=== PATIENT | female | born 1945 | race Caucasian/White ===

== ENCOUNTER → 2023-10-31 14:12 | Outpatient (REF) | payer MEDICARE, SELFPAY ==
[2023-10-31 15:20] LABS: % Basophils 0.9 % (0-2); % Eosinophils 2.1 % (0-6); % Immature Granulocytes 0.3 % (0-0.5); % Lymphocytes 16.2 % (20.5-51.1); % Neutrophils 72.5 % (42.2-75.2); Absolute Basophils 0.1 10^3/uL (0-0.2); Absolute Eosinophils 0.2 10^3/uL (0-0.7); Absolute Lymphocytes 1.3 10^3/uL (1.2-3.4); Absolute Monocytes 0.6 10^3/uL (0.1-0.6); Absolute Neutrophils 5.7 10^3/uL (1.4-6.5); Hematocrit 41.4 % (37.0-47.0); Hemoglobin 13.6 g/dL (12.0-16.0); Mean Corp Hgb Conc. 32.9 g/dL (33.0-37.0); Mean Corpuscular Hgb 29.5 pg (27.0-31.0); Mean Corpuscular Volume 89.8 fL (81.0-99.0); Mean Platelet Volume 10.8 fL (7.4-10.4); Nucleated Red Blood Cells % 0 %; Platelet Count 269 10^3/uL (130-400); Red Blood Cell Count 4.61 10^6/uL (4.20-5.40); Red Cell Dist. Width 13.8 % (11.5-14.5); White Blood Cell Count 7.8 10^3/uL (4.8-10.8)
[2023-10-31 15:42] LABS: ALT (SGPT) 24 U/L (0-35); AST (SGOT) 31 U/L (14-36); Albumin 4.2 g/dl (3.5-5.0); Alkaline Phosphatase 111 U/L (38-126); Blood Urea Nitrogen 24 mg/dl (7-17); Calcium 9.8 mg/dl (8.4-10.2); Carbon Dioxide 27 mmol/L (22-30); Chloride 105 mmol/L (98-107); GGTP 25 U/L (12-43); Glucose 104 mg/dl (70-99); HDL Cholesterol 84 mg/dl; LDL Cholesterol, Calculated 64 mg/dl; Potassium 4.3 mmol/L (3.5-5.1); Sodium 139 mmol/L (135-145); Total Bilirubin 0.5 mg/dl (0.2-1.3); Total Cholesterol 162 mg/dl (50-199); Total Protein 6.7 g/dl (6.3-8.2); Triglyceride 72 mg/dl (10-149); Very Low Density Lipoprotein 14 mg/dl (0-30); eGFR > 60.00
[2023-11-01 09:27] LABS: Glycohemoglobin (HgbA1c) 6.2 % (4.0-5.6)
== END ==
LOC: REG 14:12
PROVIDERS: ATTENDING PHYSICIAN Physician Assistant Medical
DX: E78.2 Mixed hyperlipidemia (principal); Z86.2 Personal history of diseases of the blood and blood-forming organs and certain disorders involving the immune mechanism; R74.8 Abnormal levels of other serum enzymes; K21.9 Gastro-esophageal reflux disease without esophagitis; R79.89 Other specified abnormal findings of blood chemistry; M85.89 Other specified disorders of bone density and structure, multiple sites
CPT/HCPCS: 36415; 80053; 80061; 82977; 83036; 85025

== ENCOUNTER → 2023-12-31 11:38 | Outpatient (REF) | payer MEDICARE, SELFPAY ==
[2023-12-31 17:26] LABS: Urine Albumin 2+ (Neg - Trace); Urine Bilirubin Negative (Negative); Urine Character Very Cloudy (Clear); Urine Color Yellow; Urine Glucose Negative (Negative); Urine Ketone Trace (Negative); Urine Leukocyte 2+ (Negative); Urine Nitrite Positive (Negative); Urine Occult Blood 4+ (Negative); Urine Urobilinogen Negative (Neg - 1+)
[2023-12-31 17:44] LABS: Urine Bacteria Few (Negative); Urine Red Blood Cell 80-90 /HPF (0-2)
[2023-12-31 17:45] LABS: Urine White Cell 30-40 /HPF (0-5)
== END ==
LOC: CLAB 11:38
PROVIDERS: ATTENDING PHYSICIAN Physician Assistant Medical
DX: R30.0 Dysuria (principal)
CPT/HCPCS: 81003; 81015; 87086; 87088; 87186

== ENCOUNTER → 2024-01-16 11:54 | Outpatient (REF) | payer MEDICARE, SELFPAY ==
[2024-01-16 17:51] LABS: Urine Albumin 1+ (Neg - Trace); Urine Bilirubin Negative (Negative); Urine Character Slightly Cloudy (Clear); Urine Color Yellow; Urine Glucose Negative (Negative); Urine Ketone Negative (Negative); Urine Leukocyte 2+ (Negative); Urine Nitrite Negative (Negative); Urine Occult Blood 3+ (Negative); Urine Urobilinogen Negative (Neg - 1+)
[2024-01-16 18:10] LABS: Urine Squamous Cell 0-2 /LPF (Few)
[2024-01-16 18:11] LABS: Urine Bacteria Many (Negative); Urine White Cell >100 /HPF (0-5)
== END ==
LOC: CLAB 11:54
PROVIDERS: ATTENDING PHYSICIAN Physician Assistant Medical
DX: R82.90 Unspecified abnormal findings in urine (principal)
CPT/HCPCS: 81003; 81015; 87086; 87088; 87186

== ENCOUNTER → 2024-01-27 11:46 | Outpatient (REF) | payer MEDICARE, SELFPAY ==
[2024-01-27 19:08] LABS: Urine Albumin 1+ (Neg - Trace); Urine Bilirubin Negative (Negative); Urine Character Slightly Cloudy (Clear); Urine Color Yellow; Urine Glucose Negative (Negative); Urine Ketone Negative (Negative); Urine Leukocyte 2+ (Negative); Urine Nitrite Negative (Negative); Urine Occult Blood 4+ (Negative); Urine Urobilinogen Negative (Neg - 1+); Urine pH 6.5 (5.0-9.0)
[2024-01-27 19:16] LABS: Urine Amorphous Seen; Urine Bacteria Moderate (Negative); Urine Red Blood Cell 40-50 /HPF (0-2)
== END ==
LOC: CLAB 11:46
PROVIDERS: ATTENDING PHYSICIAN Physician Assistant Medical
DX: Z01.89 Encounter for other specified special examinations (principal); J32.9 Chronic sinusitis, unspecified; N30.01 Acute cystitis with hematuria
CPT/HCPCS: 81003; 81015; 87086

== ENCOUNTER → 2024-01-29 15:51 | Outpatient (REF) | payer MEDICARE, SELFPAY | LOC: CLAB 15:51 | PROVIDERS: ATTENDING PHYSICIAN Urology | DX: R35.0 Frequency of micturition (principal) | CPT/HCPCS: 87086; 87088; 87186 ==

== ENCOUNTER → 2024-02-07 10:14 | Outpatient (REF) | payer MEDICARE, SELFPAY | LOC: HWRCS 10:14 | PROVIDERS: ATTENDING PHYSICIAN Internal Medicine Interventional Cardiology; FAMILY PHYSICIAN Internal Medicine Gastroenterology | DX: R00.2 Palpitations (principal); R00.0 Tachycardia, unspecified; R06.09 Other forms of dyspnea; R07.89 Other chest pain | CPT/HCPCS: 93306 ==

== ENCOUNTER → 2024-03-11 16:28 | Outpatient (REF) | payer MEDICARE, SELFPAY ==
[2024-03-11 18:29] LABS: % Basophils 0.8 % (0-2); % Eosinophils 1.3 % (0-6); % Immature Granulocytes 0.3 % (0-0.5); % Lymphocytes 11.6 % (20.5-51.1); % Monocytes 8.7 % (1.7-9.3); % Neutrophils 77.3 % (42.2-75.2); Absolute Basophils 0.1 10^3/uL (0-0.2); Absolute Eosinophils 0.1 10^3/uL (0-0.7); Absolute Lymphocytes 0.9 10^3/uL (1.2-3.4); Absolute Monocytes 0.7 10^3/uL (0.1-0.6); Absolute Neutrophils 5.7 10^3/uL (1.4-6.5); Hematocrit 41.3 % (37.0-47.0); Hemoglobin 13.4 g/dL (12.0-16.0); Mean Corp Hgb Conc. 32.4 g/dL (33.0-37.0); Mean Corpuscular Hgb 29.6 pg (27.0-31.0); Mean Corpuscular Volume 91.4 fL (81.0-99.0); Mean Platelet Volume 11.6 fL (7.4-10.4); Nucleated Red Blood Cells % 0 %; Platelet Count 254 10^3/uL (130-400); Red Blood Cell Count 4.52 10^6/uL (4.20-5.40); White Blood Cell Count 7.4 10^3/uL (4.8-10.8)
[2024-03-11 18:39] LABS: Iron 77 ug/dl (37-170)
== END ==
LOC: CLAB 16:28
PROVIDERS: ATTENDING PHYSICIAN Physician Assistant Medical
DX: R19.5 Other fecal abnormalities (principal); D50.9 Iron deficiency anemia, unspecified
CPT/HCPCS: 83540; 85025

== ENCOUNTER → 2024-03-24 11:38 | Outpatient (REF) | payer MEDICARE, SELFPAY ==
[2024-03-24 12:38] LABS: % Basophils 0.8 % (0-2); % Eosinophils 1.6 % (0-6); % Immature Granulocytes 0.2 % (0-0.5); % Lymphocytes 12.2 % (20.5-51.1); % Monocytes 7.2 % (1.7-9.3); Absolute Basophils 0.1 10^3/uL (0-0.2); Absolute Eosinophils 0.1 10^3/uL (0-0.7); Absolute Monocytes 0.6 10^3/uL (0.1-0.6); Absolute Neutrophils 6.4 10^3/uL (1.4-6.5); Hematocrit 40.6 % (37.0-47.0); Hemoglobin 13.8 g/dL (12.0-16.0); Mean Corpuscular Hgb 29.3 pg (27.0-31.0); Mean Corpuscular Volume 86.2 fL (81.0-99.0); Mean Platelet Volume 11.7 fL (7.4-10.4); Nucleated Red Blood Cells % 0 %; Platelet Count 194 10^3/uL (130-400); Red Blood Cell Count 4.71 10^6/uL (4.20-5.40); Red Cell Dist. Width 13.7 % (11.5-14.5); White Blood Cell Count 8.3 10^3/uL (4.8-10.8)
[2024-03-24 13:07] LABS: ALT (SGPT) 20 U/L (0-35); AST (SGOT) 28 U/L (14-36); Albumin 4.5 g/dl (3.5-5.0); Alkaline Phosphatase 115 U/L (38-126); Blood Urea Nitrogen 26 mg/dl (7-17); Carbon Dioxide 23 mmol/L (22-30); Chloride 109 mmol/L (98-107); Glucose 110 mg/dl (70-99); HDL Cholesterol 101 mg/dl; LDL Cholesterol, Calculated 58 mg/dl; Potassium 4.3 mmol/L (3.5-5.1); Sodium 141 mmol/L (135-145); Total Bilirubin 0.5 mg/dl (0.2-1.3); Total Cholesterol 171 mg/dl (50-199); Total Protein 6.9 g/dl (6.3-8.2); Triglyceride 62 mg/dl (10-149); Very Low Density Lipoprotein 12 mg/dl (0-30); eGFR > 60.00
[2024-03-24 13:34] LABS: TSH 2.72 uIU/ml (0.47-4.68)
[2024-03-24 13:52] LABS: Urine Albumin 2+ (Neg - Trace); Urine Bilirubin Negative (Negative); Urine Character Clear (Clear); Urine Color Yellow; Urine Glucose Negative (Negative); Urine Ketone Negative (Negative); Urine Leukocyte 2+ (Negative); Urine Nitrite Negative (Negative); Urine Occult Blood 3+ (Negative); Urine Urobilinogen Negative (Neg - 1+)
[2024-03-24 14:02] LABS: Urine Bacteria Few (Negative); Urine Squamous Cell 0-2 /LPF (Few); Urine White Cell 40-50 /HPF (0-5)
== END ==
LOC: RAD 11:38
PROVIDERS: ATTENDING PHYSICIAN Surgery; FAMILY PHYSICIAN Physician Assistant Medical; REFERRING PHYSICIAN Obstetrics & Gynecology
DX: N20.0 Calculus of kidney (principal); N39.0 Urinary tract infection, site not specified; R19.5 Other fecal abnormalities; R63.4 Abnormal weight loss; K21.9 Gastro-esophageal reflux disease without esophagitis; Z87.19 Personal history of other diseases of the digestive system; Z86.2 Personal history of diseases of the blood and blood-forming organs and certain disorders involving the immune mechanism; E78.2 Mixed hyperlipidemia; D72.9 Disorder of white blood cells, unspecified; D64.9 Anemia, unspecified
CPT/HCPCS: 36415; 74176; 80053; 80061; 81003; 81015; 84443; 85025; 87086

== ENCOUNTER → 2024-04-14 13:01 | Outpatient (REF) | payer MEDICARE, SELFPAY ==
[2024-04-14 16:10] LABS: % Basophils 0.8 % (0-2); % Eosinophils 1.3 % (0-6); % Immature Granulocytes 0.3 % (0-0.5); % Lymphocytes 14.5 % (20.5-51.1); % Monocytes 8.2 % (1.7-9.3); % Neutrophils 74.9 % (42.2-75.2); Absolute Basophils 0.1 10^3/uL (0-0.2); Absolute Eosinophils 0.1 10^3/uL (0-0.7); Absolute Lymphocytes 1.3 10^3/uL (1.2-3.4); Absolute Monocytes 0.8 10^3/uL (0.1-0.6); Hematocrit 40.5 % (37.0-47.0); Hemoglobin 13.5 g/dL (12.0-16.0); Mean Corp Hgb Conc. 33.3 g/dL (33.0-37.0); Mean Corpuscular Hgb 29.5 pg (27.0-31.0); Mean Corpuscular Volume 88.6 fL (81.0-99.0); Mean Platelet Volume 11.4 fL (7.4-10.4); Nucleated Red Blood Cells % 0 %; Platelet Count 266 10^3/uL (130-400); Red Blood Cell Count 4.57 10^6/uL (4.20-5.40); Red Cell Dist. Width 13.6 % (11.5-14.5); White Blood Cell Count 9.3 10^3/uL (4.8-10.8)
== END ==
LOC: REG 13:01
PROVIDERS: ATTENDING PHYSICIAN Physician Assistant Medical
DX: R79.9 Abnormal finding of blood chemistry, unspecified (principal)
CPT/HCPCS: 36415; 85025

== ENCOUNTER 2024-04-16 07:01 | Day surgery (SDC) | payer MEDICARE, SELFPAY | END 2024-04-16 12:30 | disposition home or self-care (01) | LOC: CATH 07:01 | PROVIDERS: ATTENDING PHYSICIAN Internal Medicine Cardiovascular Disease; FAMILY PHYSICIAN Physician Assistant Medical; OTHER PHYSICIAN Internal Medicine Interventional Cardiology | DX: I08.3 Combined rheumatic disorders of mitral, aortic and tricuspid valves (principal); I70.0 Atherosclerosis of aorta; Z79.899 Other long term (current) drug therapy | CPT/HCPCS: 93312; 93320; 93325 ==

== ENCOUNTER → 2024-05-04 12:50 | Outpatient (REF) | payer MEDICARE, SELFPAY ==
[2024-05-04 15:37] LABS: ALT (SGPT) 23 U/L (0-35); AST (SGOT) 33 U/L (14-36); Albumin 4.1 g/dl (3.5-5.0); Alkaline Phosphatase 124 U/L (38-126); Blood Urea Nitrogen 15 mg/dl (7-17); Calcium 9.7 mg/dl (8.4-10.2); Carbon Dioxide 25 mmol/L (22-30); Chloride 108 mmol/L (98-107); Glucose 95 mg/dl (70-99); Potassium 4.4 mmol/L (3.5-5.1); Sodium 143 mmol/L (135-145); Total Bilirubin 0.5 mg/dl (0.2-1.3); Total Protein 6.3 g/dl (6.3-8.2); eGFR > 60.00
== END ==
LOC: REG 12:50
PROVIDERS: ATTENDING PHYSICIAN Physician Assistant Medical
DX: R79.9 Abnormal finding of blood chemistry, unspecified (principal)
CPT/HCPCS: 36415; 80053

== ENCOUNTER → 2024-06-26 09:26 | Outpatient (REF) | payer MEDICARE, SELFPAY ==
[2024-06-26 10:52] LABS: Urine Albumin 2+ (Neg - Trace); Urine Bilirubin Negative (Negative); Urine Character Very Cloudy (Clear); Urine Color Yellow; Urine Glucose Negative (Negative); Urine Ketone Negative (Negative); Urine Leukocyte 2+ (Negative); Urine Nitrite Negative (Negative); Urine Occult Blood 4+ (Negative); Urine Urobilinogen Negative (Neg - 1+)
[2024-06-26 11:32] LABS: % Basophils 1.1 % (0-2); % Eosinophils 2.3 % (0-6); % Immature Granulocytes 0.2 % (0-0.5); % Lymphocytes 16.9 % (20.5-51.1); % Neutrophils 70.5 % (42.2-75.2); Absolute Basophils 0.1 10^3/uL (0-0.2); Absolute Eosinophils 0.2 10^3/uL (0-0.7); Absolute Lymphocytes 1.1 10^3/uL (1.2-3.4); Absolute Monocytes 0.6 10^3/uL (0.1-0.6); Absolute Neutrophils 4.6 10^3/uL (1.4-6.5); Hematocrit 45.3 % (37.0-47.0); Hemoglobin 14.8 g/dL (12.0-16.0); Mean Corp Hgb Conc. 32.7 g/dL (33.0-37.0); Mean Corpuscular Hgb 29.8 pg (27.0-31.0); Mean Corpuscular Volume 91.1 fL (81.0-99.0); Mean Platelet Volume 11.9 fL (7.4-10.4); Nucleated Red Blood Cells % 0 %; Platelet Count 222 10^3/uL (130-400); Red Blood Cell Count 4.97 10^6/uL (4.20-5.40); Red Cell Dist. Width 12.9 % (11.5-14.5); White Blood Cell Count 6.6 10^3/uL (4.8-10.8)
[2024-06-26 11:44] LABS: Urine Red Blood Cell 30-40 /HPF (0-2); Urine White Cell >100 /HPF (0-5)
[2024-06-26 11:45] LABS: Urine Bacteria Few (Negative)
[2024-06-26 12:19] LABS: ALT (SGPT) 23 U/L (0-35); AST (SGOT) 29 U/L (14-36); Albumin 4.4 g/dl (3.5-5.0); Alkaline Phosphatase 146 U/L (38-126); Blood Urea Nitrogen 18 mg/dl (7-17); Calcium 10.3 mg/dl (8.4-10.2); Carbon Dioxide 24 mmol/L (22-30); Chloride 105 mmol/L (98-107); Glucose 114 mg/dl (70-99); Magnesium 1.9 mg/dl (1.6-2.3); Potassium 4.4 mmol/L (3.5-5.1); Sodium 142 mmol/L (135-145); Total Bilirubin 0.5 mg/dl (0.2-1.3); Total Protein 6.9 g/dl (6.3-8.2); eGFR > 60.00
[2024-06-26 12:32] LABS: TSH 0.24 uIU/ml (0.47-4.68)
[2024-06-27 09:11] LABS: Free T3 3.31 pg/ml (2.77-5.27); Total Thyroxine 7.13 ug/dl (5.5-11.0)
[2024-06-29 09:19] LABS: Free T4 1.45 ng/dl (0.78-2.19)
== END ==
LOC: REG 09:26
PROVIDERS: ATTENDING PHYSICIAN Student in an Organized Health Care Education/Training Program
DX: R00.1 Bradycardia, unspecified (principal); R35.0 Frequency of micturition; R79.9 Abnormal finding of blood chemistry, unspecified
CPT/HCPCS: 36415; 80053; 81003; 81015; 83735; 84436; 84443; 84481; 85025; 87086

== ENCOUNTER → 2024-07-03 10:12 | Outpatient (REF) | payer MEDICARE, SELFPAY | LOC: RCS 10:12 | PROVIDERS: ATTENDING PHYSICIAN Student in an Organized Health Care Education/Training Program; FAMILY PHYSICIAN Physician Assistant Medical | DX: R00.1 Bradycardia, unspecified (principal) | CPT/HCPCS: 93225; 93226 ==

== ENCOUNTER → 2024-07-08 11:45 | Outpatient (REF) | payer MEDICARE, SELFPAY ==
[2024-07-08 17:47] LABS: TSH 0.52 uIU/ml (0.47-4.68)
== END ==
LOC: CLAB 11:45
PROVIDERS: ATTENDING PHYSICIAN Physician Assistant Medical
DX: E03.8 Other specified hypothyroidism (principal)
CPT/HCPCS: 36415; 84443

== ENCOUNTER 2024-07-15 11:22 | Inpatient (IN) | payer MEDICARE, SELFPAY ==
[2024-07-15] VITALS (8 sets, daily range): BP systolic 69–161; BP diastolic 61–87
[2024-07-15 09:56] LABS: INR 0.92; PT 12.8 Sec (11.4-14.6)
[2024-07-15] MEDS: STERILE WATER FOR INJECTION 20 ML IV (10:13)
[2024-07-15] MEDS: MERREM 1000 MG IV (10:13)
[2024-07-15] MEDS: TYLENOL 650 MG PO ×2 (12:39→19:32)
--- NOTE | 2024-07-15 12:48 | PTCARENOTE ---
pt admitted form IR post nephrostomy tube placement. left lower back dressing intact. nephrostomy draining bloody. pt states 4/10 pain tylenol given. room air breath sounds clear.
[2024-07-15] MEDS: PRED FORTE 1% EYE DROPS 1 DROP BOTH EYES ×2 (17:06→21:35)
[2024-07-15] MEDS: LIPITOR 20 MG PO (17:11)
[2024-07-15] MEDS: SENOKOT 8.6 MG PO (19:31)
[2024-07-15] MEDS: NSS 1000 IV (21:33)
[2024-07-16] VITALS (14 sets, daily range): BP systolic 100–177; BP diastolic 46–75
[2024-07-16] MEDS: TYLENOL 650 MG PO (03:23)
[2024-07-16 06:27] LABS: Hemoglobin 13.6 g/dL (12.0-16.0); Mean Corp Hgb Conc. 33.2 g/dL (33.0-37.0); Mean Corpuscular Volume 90.5 fL (81.0-99.0); Mean Platelet Volume 10.3 fL (7.4-10.4); Platelet Count 200 10^3/uL (130-400); Red Blood Cell Count 4.53 10^6/uL (4.20-5.40); Red Cell Dist. Width 13.1 % (11.5-14.5); White Blood Cell Count 9.6 10^3/uL (4.8-10.8)
[2024-07-16 07:08] LABS: Blood Urea Nitrogen 20 mg/dl (7-17); Calcium 9.3 mg/dl (8.4-10.2); Carbon Dioxide 24 mmol/L (22-30); Chloride 107 mmol/L (98-107); Estimated Creatinine Clearance 59 ml/min; Glucose 77 mg/dl (70-99); Potassium 4.2 mmol/L (3.5-5.1); Sodium 145 mmol/L (135-145); eGFR > 60.00
[2024-07-16] MEDS: ZOFRAN 4 MG IV (12:25)
[2024-07-16 12:34] LABS: Hematocrit 41.7 % (37.0-47.0); Hemoglobin 13.6 g/dL (12.0-16.0); Mean Corp Hgb Conc. 32.6 g/dL (33.0-37.0); Mean Corpuscular Hgb 30.1 pg (27.0-31.0); Mean Corpuscular Volume 92.3 fL (81.0-99.0); Mean Platelet Volume 10.6 fL (7.4-10.4); Platelet Count 194 10^3/uL (130-400); Red Blood Cell Count 4.52 10^6/uL (4.20-5.40); Red Cell Dist. Width 13.2 % (11.5-14.5); White Blood Cell Count 13.9 10^3/uL (4.8-10.8)
[2024-07-16] MEDS: COMPAZINE 5 MG IV (12:41)
[2024-07-16 12:43] LABS: Blood Urea Nitrogen 23 mg/dl (7-17); Calcium 8.8 mg/dl (8.4-10.2); Carbon Dioxide 20 mmol/L (22-30); Chloride 106 mmol/L (98-107); Estimated Creatinine Clearance 44 ml/min; Glucose 109 mg/dl (70-99); Potassium 4.6 mmol/L (3.5-5.1); Sodium 143 mmol/L (135-145); eGFR > 60.00
--- NOTE | 2024-07-16 13:25 | W.IMMPOSTOP ---
Surgical Immed Post Op Note
-
Primary Surgeon: Peffer
Assisting Surgeon:
Pre-op Diagnosis: Staghorn renal stone
Post-op Diagnosis: same
Procedure Performed: Left PCNL
Anesthesia Type: general
Specimen / Cultures: stone
Estimated Blood Loss: 30cc
Complications: none
Operative Findings:
vast majority of massive stone removed
6x24 JJ Stent
16Fr tanana cath as nephrostomy
Espinoza catheter
[2024-07-16] MEDS: SENOKOT 8.6 MG PO ×2 (15:09→21:14)
[2024-07-16] MEDS: PROTONIX 20 MG PO (15:11)
[2024-07-16] MEDS: STERILE WATER FOR INJECTION 10 ML IV ×2 (15:12→23:25)
[2024-07-16] MEDS: MERREM 500 MG IV ×2 (15:12→23:25)
[2024-07-16] MEDS: PRED FORTE 1% EYE DROPS BOTH EYES (15:12)
[2024-07-16] MEDS: PRED FORTE 1% EYE DROPS 1 DROP BOTH EYES ×2 (15:13→21:14)
--- NOTE | 2024-07-16 15:31 | PTCARENOTE ---
Received Pt from PACU after Nephrolithotomy. Vital signs stable. Nephrostomy and ellison catheter with bloody output. Pt denies pain/discomfort. at bedside. Call bryant within reach.
--- NOTE | 2024-07-16 16:49 | CM ---
Reviewed chart, met with patient to obtain information for assessment. Patient stated that she lives with her spouse in a duplex with 2 steps to enter. Patient described herself as independent with her ADLs, personal care dressing and bathing. 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 Her spouse does assist her when needed. She drives and can get to her own appointments and does all of her own shopping.
She denied any DME in her home.
She has not had VN services in the past.
Patient has never been to a SNF.
Patient has a prescription plan and uses, [facility] in [place] for all of her medications.
Patient stated that she feels she will be able to return home when stable. Spouse was at bedside and confirmed the plan.
Plan: Case management will continue to follow and assist with discharge planning. Home when stable.
[2024-07-16] MEDS: LIPITOR 20 MG PO (17:22)
[2024-07-17] MEDS: ZOFRAN 4 MG IV ×2 (00:08→08:01)
[2024-07-17] MEDS: TYLENOL 650 MG PO (00:38)
[2024-07-17 03:15] VITALS: BP 121/56
[2024-07-17 06:27] LABS: Hematocrit 39.8 % (37.0-47.0); Hemoglobin 12.9 g/dL (12.0-16.0); Mean Corp Hgb Conc. 32.4 g/dL (33.0-37.0); Mean Corpuscular Hgb 30.1 pg (27.0-31.0); Mean Corpuscular Volume 92.8 fL (81.0-99.0); Mean Platelet Volume 10.7 fL (7.4-10.4); Platelet Count 178 10^3/uL (130-400); Red Blood Cell Count 4.29 10^6/uL (4.20-5.40); Red Cell Dist. Width 13.4 % (11.5-14.5); White Blood Cell Count 15.3 10^3/uL (4.8-10.8)
[2024-07-17 06:48] LABS: Blood Urea Nitrogen 25 mg/dl (7-17); Calcium 8.9 mg/dl (8.4-10.2); Carbon Dioxide 27 mmol/L (22-30); Chloride 103 mmol/L (98-107); Estimated Creatinine Clearance 40 ml/min; Glucose 134 mg/dl (70-99); Potassium 4.9 mmol/L (3.5-5.1); Sodium 142 mmol/L (135-145); eGFR > 60.00
[2024-07-17] MEDS: MERREM 500 MG IV ×2 (07:10→15:24)
[2024-07-17] MEDS: STERILE WATER FOR INJECTION 10 ML IV ×2 (07:10→15:24)
[2024-07-17] MEDS: SENOKOT 8.6 MG PO (07:11)
[2024-07-17] MEDS: PROTONIX 20 MG PO (07:11)
[2024-07-17] MEDS: PRED FORTE 1% EYE DROPS 1 DROP BOTH EYES ×2 (07:11→15:24)
--- NOTE | 2024-07-17 07:37 | PTCARENOTE ---
No significant hematuria noted in ellison catheter, removed at 0730. Encouraged Pt to ring call bryant when needing to go to the bathroom so nursing can monitor urine output/color.
[2024-07-17 07:39] VITALS: BP 114/61
[2024-07-17 11:45] VITALS: BP 134/61
--- NOTE | 2024-07-17 14:55 | W.PN.URO.CBU ---
Today's Communication / Plan
-
Discharge home
Assessment / Plan
-
79F with bilateral staghorn renal calculi, recurrent proteus UTI
s/p L PCNL 07/17/24
Nephrostomy removed this AM
Nausea and vomiting resolved
Voiding without difficulty after ellison removed
Pain controlled
Labs and vitals stable
Diagnosis
-
Date of Service: July 17, 2024
-
Patient Diagnosis:
L renal stone
staghorn calculus
Post Op Day: 1 s/p L PCNL
Subjective
-
tolerating diet
ambulated
pain controlled
N/V resolved
Objective
-
Vital Signs
Temp Pulse Resp BP Pulse Ox
98.0 F 83 17 134/61 97
07/17/24 11:45 07/17/24 11:45 07/17/24 11:45 07/17/24 11:45 07/17/24 11:45
Intake and Output
07/16/24 07/17/24 07/18/24
06:59 06:59 06:59
Intake Total 480 / 480 980 / 980
Output Total 365 / 365 1205 / 1205
Balance 115 / 115 -225 / -225
Intake:
Oral fluids 480 / 480 480 / 480
IV fluids (Total) 500 / 500
Normosol 500 / 500
Output:
Urinary Drain Output (Total) 365 / 365 330 / 330
Left Nephrostomy 365 / 365 330 / 330
Urine, Ellison 875 / 875
Other:
Number of approximated MODERATE 1
amounts of urine
Laboratory Results
07/17/24 06:02
07/17/24 06:02
Physical Exam
-
General - well developed, well nourished, no acute distress
Chest - clear
Abdomen - soft, non-tender
Skin - warm & dry with no rash
Neuro - AOx3, no motor deficits
Extremities - no clubbing, no cyanosis, no edema
Incision - clean, dry, catheter in PCN site removed
Some drainage which is clear
[2024-07-17 15:10] VITALS: BP 152/69
[2024-07-21 22:50] LABS: Stone Analysis Mass 10508 mg
== END 2024-07-17 16:34 | disposition home or self-care (01) | DRG 660 ==
LOC: 3 WEST ACU 11:22
PROVIDERS: ADMITTING PHYSICIAN Urology; FAMILY PHYSICIAN Physician Assistant Medical
PROC: 0T25X0Z Change Drainage Device in Kidney, External Approach (ICD-10-PCS; 2024-07-16)
PROC: 0TC43ZZ Extirpation of Matter from Left Kidney Pelvis, Percutaneous Approach (ICD-10-PCS; 2024-07-16)
PROC: 0T778DZ Dilation of Left Ureter with Intraluminal Device, Via Natural or Artificial Opening Endoscopic (ICD-10-PCS; 2024-07-16)
PROC: 0TC48ZZ Extirpation of Matter from Left Kidney Pelvis, Via Natural or Artificial Opening Endoscopic (ICD-10-PCS; 2024-07-16)
DX: N20.0 Calculus of kidney (principal); D68.8 Other specified coagulation defects; N39.0 Urinary tract infection, site not specified; N13.9 Obstructive and reflux uropathy, unspecified; B96.4 Proteus (mirabilis) (morganii) as the cause of diseases classified elsewhere; E78.00 Pure hypercholesterolemia, unspecified; I49.3 Ventricular premature depolarization; Z79.899 Other long term (current) drug therapy; Z87.440 Personal history of urinary (tract) infections; Z87.442 Personal history of urinary calculi; Z87.19 Personal history of other diseases of the digestive system; Z87.11 Personal history of peptic ulcer disease; Z90.49 Acquired absence of other specified parts of digestive tract
CPT/HCPCS: 36415; 50433; 74420; 76000; 80048; 82365; 85027; 85610; 99152; 99153; C1726; C1729; C1758; C1769; C2617; J2185

== ENCOUNTER 2024-07-27 13:37 | Emergency (ER) | payer MEDICARE, SELFPAY ==
[2024-07-27 13:48] VITALS: BP 157/54
[2024-07-27 14:29] LABS: % Basophils 0.6 % (0-2); % Eosinophils 1.7 % (0-6); % Immature Granulocytes 0.7 % (0-0.5); % Lymphocytes 12.6 % (20.5-51.1); % Monocytes 8.3 % (1.7-9.3); % Neutrophils 76.1 % (42.2-75.2); Absolute Basophils 0.1 10^3/uL (0-0.2); Absolute Eosinophils 0.2 10^3/uL (0-0.7); Absolute Immature Granulocytes 0.1 10^3/uL (0-0.05); Absolute Lymphocytes 1.4 10^3/uL (1.2-3.4); Absolute Monocytes 0.9 10^3/uL (0.1-0.6); Absolute Neutrophils 8.2 10^3/uL (1.4-6.5); Hematocrit 43.8 % (37.0-47.0); Hemoglobin 13.8 g/dL (12.0-16.0); Mean Corp Hgb Conc. 31.5 g/dL (33.0-37.0); Mean Corpuscular Hgb 29.1 pg (27.0-31.0); Mean Corpuscular Volume 92.2 fL (81.0-99.0); Mean Platelet Volume 10.4 fL (7.4-10.4); Nucleated Red Blood Cells % 0 %; Platelet Count 263 10^3/uL (130-400); Red Blood Cell Count 4.75 10^6/uL (4.20-5.40); Red Cell Dist. Width 13.1 % (11.5-14.5); White Blood Cell Count 10.8 10^3/uL (4.8-10.8)
[2024-07-27 14:54] LABS: ALT (SGPT) 22 U/L (0-35); AST (SGOT) 27 U/L (14-36); Albumin 4.3 g/dl (3.5-5.0); Alkaline Phosphatase 100 U/L (38-126); Blood Urea Nitrogen 16 mg/dl (7-17); Calcium 9.7 mg/dl (8.4-10.2); Carbon Dioxide 20 mmol/L (22-30); Chloride 108 mmol/L (98-107); Glucose 117 mg/dl (70-99); Potassium 4.4 mmol/L (3.5-5.1); Sodium 142 mmol/L (135-145); Total Bilirubin 0.6 mg/dl (0.2-1.3); Total Protein 7.2 g/dl (6.3-8.2); eGFR > 60.00
[2024-07-27 14:55] LABS: Troponin I < 0.012 ng/ml
[2024-07-27 15:18] LABS: TSH 0.05 uIU/ml (0.47-4.68)
[2024-07-27 18:07] VITALS: BP 130/57
--- NOTE | 2024-07-27 18:13 | ED.GENMED ---
History of Present Illness
General
Chief Complaint: Vascular Symptoms
Time Seen by Provider: 07/27/24 16:31
History of Present Illness
History of Present Illness:
79-year-old female with history of peptic ulcer disease, GERD, anemia presenting to the emergency department with concern of JVD. Patient arrives from her doctor's office, where there was concern that she had congestion to her right neck,
pulsating. She was subsequently brought into the emergency department for further evaluation. On arrival, patient reports that she never realized that the pulsating was there. She is unsure how long it has been there. Denies difficulty
breathing. Denies lower extremity edema. Denies chest pain. Denies abdominal pain or GI symptoms. Does note recent renal surgery at the beginning of the month, removal of staghorn calculi. She is due to have the right kidney done as well.
Denies additional acute medical complaints
Past History
Past History
ED Past Medical History: GERD and Other (Migraines, GI bleed, peptic ulcer disease, gastric outlet obstruction, glaucoma)
ED Past Surgical History: Bowel resection and
Social History
Tobacco: Non-smoker
Alcohol: Occasional
Drug: None
Personal:
Living: with family
Employment: Retired
Family History
Family History: Other
Phy Exam
Physical Exam
Physical Exam:
General: Well-appearing, no clinical signs of dehydration, nontoxic and in no acute distress
HEENT: protecting airway
Neck: appears supple, vascular congestion to the right lower neck, at the clavicular region. Pulsating carotid
CV: Normal heart rate, regular rhythm
Resp: No accessory muscle use, no increased work of breathing, lungs clear to auscultation bilaterally
Abd: Soft and non-distended, no tenderness to palpation
Extremities: No deformities, no swelling, no erythema
Neuro: alert, no focal neurologic deficit
: deferred
Rectal: deferred
Psych: Normal affect
Skin: Intact
Course
Orders/Labs/Results
Orders:
Orders
07/27/24 13:51
ECG [Electrocardiogram (*1)] Urgent
Reason for Study: Bradycardia / Tachycardia
Other Reason for Exam: bradycardia, throat pain
EKG- Treatment ONCE
07/27/24 14:09
Complete Blood Count/With Diff Urgent
Comprehensive Metabolic Panel Urgent
TSH Urgent
Troponin I Urgent
07/27/24 16:11
EKG [Electrocardiogram (*1)] Urgent
Reason for Study: Abnormal EKG
EKG- Treatment ONCE
07/27/24 16:55
CT Chest Angio W/wo Iv Contras Urgent
Comment:
Reason For Exam: JVD/vascular congestion, r/o aneurysm
Abnormal Lab Results
07/27/24
14:09
MCHC 31.5 L g/dL
(33.0-37.0)
Abs Immat Gran (auto) 0.1 H 10^3/uL
(0-0.05)
Absolute Neuts (auto) 8.2 H 10^3/uL
(1.4-6.5)
Absolute Monos (auto) 0.9 H 10^3/uL
(0.1-0.6)
Immature Gran % 0.7 H %
(0-0.5)
Neutrophils % 76.1 H %
(42.2-75.2)
Lymphocytes % 12.6 L %
(20.5-51.1)
Chloride 108 H mmol/L
(98-107)
Carbon Dioxide 20 L mmol/L
(22-30)
Glucose 117 H mg/dl
(70-99)
TSH 0.05 L uIU/ml
(0.47-4.68)
07/27/24 14:09
07/27/24 14:09
Vital Signs
Initial and Last Documented VS:
Initial Vital Signs
Pulse Resp Pulse Ox
51 16 94
07/27/24 13:46 07/27/24 13:46 07/27/24 13:46
Last Documented Vital Signs
Temp Pulse Resp BP Pulse Ox
97.2 F 80 16 130/57 98
07/27/24 13:48 07/27/24 18:07 07/27/24 18:07 07/27/24 18:07 07/27/24 18:07
MDM/Problems Addressed
MDM/Problems Addressed:
79-year-old female presenting to the emergency department for vascular congestion to the right neck. Vital signs on arrival are normal.
On exam patient is well-appearing, resting comfortably, no acute distress or discomfort. Patient does have obvious pulsations to the right lower neck around the clavicular region. Seems less consistent with JVD, pulsating carotid artery. No
audible bruit. Unclear etiology, and unclear how long pulsation has been there. Screening laboratory analysis completed, unremarkable. For further evaluation, will obtain CT angio to ensure no aneurysm or additional abnormal pathology
08:30 -CT imaging without acute pathology. On reassessment, remains asymptomatic and hemodynamically stable. Feel stable for discharge with continued outpatient follow-up. TSH was incidentally noted to be low, however do not suspect that this is
causing patient's symptoms. Advised interval follow-up with primary care doctor. Return precautions discussed and patient verbalized understanding.
*Critical Care Note
Total Time (30-74mins, 75-104mins- exclusive of procedures): Not Applicable
ED Attending Note
-
Portions of this chart may have been created with voice recognition software.� Occasional wrong word or��sound alike� substitutions may have occurred due to the inherent limitations of voice recognition software.
Discharge Plan
Departure
Patient Disposition: Home (Routine Discharge)
Date of Disposition: 07/27/24
Time of Disposition: 20:33
Patient with high blood pressure during this ER visit?: No
Condition: Good
Discharge Problem:
neck distension
Prescriptions:
No Action
multivitamin with folic acid [Tab-A-Kia] 1 TABLET tablet
1 tab PO DAILY
atorvastatin 20 mg tablet
20 mg PO QPM
Visbiome 112.5 billion cell Capsule
1 cap PO DAILY
prednisolone acetate 1 % Drops,Suspension
1 drp BOTH EYES TID
Vitamin C 1,000 mg Tablet Extended Release
1,000 mg PO DAILY
pantoprazole 20 mg Tablet,Delayed Release (Dr/Ec)
20 mg PO DAILY
estradiol [Estrace] 0.01 % (0.1 mg/gram) Cream
1 g VAGINAL QWEEK
flavoring agent (bulk) Oil
1 ea MISCELLANEOUS DAILY
ferrous sulfate 142 mg (45 mg iron) Tablet Extended Release
142 mg PO DAILY
Referrals:
Jitendra Rodriguez PA-C [Family Provider] -
Activity Restrictions/Additional Instructions:
You were seen in the emergency department for prominent vasculature to your neck
You were found to have normal blood work and CT imaging without any visualized abnormality to the vasculature. Your thyroid hormone was low, which will need follow-up with your doctor, however do not suspect that this is causing your symptoms.
Please follow-up closely with your primary care physician.
Return to the emergency department for any worsening of your symptoms, or any development of chest pain, difficulty breathing, abdominal pain with persistent vomiting and inability to tolerate food or liquid by mouth (concern for dehydration),
weakness, headache or confusion, fever greater than 100.4, or any additional symptoms that are concerning to you.
Thank you for choosing [facility].
Interventions
Interventions:
*Risk Screen - Suicide Last Done: 07/27/24 16:00
*Neglect/Abuse Screening Last Done: 07/27/24 16:00
ED- Fall Risk Assessment Last Done: 07/27/24 16:26
*ED COVID-19 Vaccine History Last Done: 07/27/24 16:00
ED- Cardiac Assessment Last Done: 07/27/24 16:26
ED- Pulmonary Assessment Last Done: 07/27/24 16:26
ED-Peripheral Vascular Assessment Last Done: 07/27/24 16:26
Discharge Date and Time
Print Language: ECUADOREAN
[2024-07-27 21:07] VITALS: BP 123/70
== END 2024-07-27 21:08 | disposition home or self-care (01) ==
LOC: EMR 13:37
PROVIDERS: Emergency Medicine; EMERGENCY PHYSICIAN Student in an Organized Health Care Education/Training Program; FAMILY PHYSICIAN Physician Assistant Medical
DX: M53.82 Other specified dorsopathies, cervical region (principal); K21.9 Gastro-esophageal reflux disease without esophagitis; Z87.11 Personal history of peptic ulcer disease
CPT/HCPCS: 99284; 71275; 80053; 84443; 84484; 85025; 93005; Q9967

== ENCOUNTER → 2024-07-30 12:59 | Outpatient (REF) | payer MEDICARE, SELFPAY ==
[2024-07-30 14:00] LABS: % Basophils 0.7 % (0-2); % Eosinophils 1.9 % (0-6); % Immature Granulocytes 0.6 % (0-0.5); % Lymphocytes 11.9 % (20.5-51.1); % Monocytes 7.8 % (1.7-9.3); % Neutrophils 77.1 % (42.2-75.2); Absolute Basophils 0.1 10^3/uL (0-0.2); Absolute Eosinophils 0.2 10^3/uL (0-0.7); Absolute Immature Granulocytes 0.1 10^3/uL (0-0.05); Absolute Lymphocytes 1.5 10^3/uL (1.2-3.4); Absolute Neutrophils 9.6 10^3/uL (1.4-6.5); Hematocrit 41.4 % (37.0-47.0); Hemoglobin 13.6 g/dL (12.0-16.0); Mean Corp Hgb Conc. 32.9 g/dL (33.0-37.0); Mean Corpuscular Hgb 29.6 pg (27.0-31.0); Mean Platelet Volume 10.6 fL (7.4-10.4); Nucleated Red Blood Cells % 0 %; Platelet Count 404 10^3/uL (130-400); Red Cell Dist. Width 13.1 % (11.5-14.5); White Blood Cell Count 12.4 10^3/uL (4.8-10.8)
[2024-07-30 15:39] LABS: TSH < 0.02 uIU/ml (0.47-4.68)
[2024-07-31 13:55] LABS: Free T4 1.16 ng/dl (0.78-2.19)
[2024-07-31 14:13] LABS: Free T3 3.16 pg/ml (2.77-5.27)
== END ==
LOC: REG 12:59
PROVIDERS: ATTENDING PHYSICIAN Physician Assistant Medical
DX: R09.89 Other specified symptoms and signs involving the circulatory and respiratory systems (principal); R79.89 Other specified abnormal findings of blood chemistry
CPT/HCPCS: 36415; 84439; 84443; 84481; 85025; 93880

== ENCOUNTER → 2024-07-31 13:08 | Outpatient (REF) | payer MEDICARE, SELFPAY | LOC: RAD 13:08 | PROVIDERS: ATTENDING PHYSICIAN Physician Assistant Medical | DX: R93.89 Abnormal findings on diagnostic imaging of other specified body structures (principal) | CPT/HCPCS: 71046 ==

== ENCOUNTER → 2024-08-04 13:05 | Outpatient (REF) | payer MEDICARE, SELFPAY ==
[2024-08-04 14:04] LABS: % Basophils 0.6 % (0-2); % Eosinophils 1.1 % (0-6); % Immature Granulocytes 0.6 % (0-0.5); % Monocytes 11.7 % (1.7-9.3); Absolute Basophils 0.1 10^3/uL (0-0.2); Absolute Eosinophils 0.1 10^3/uL (0-0.7); Absolute Immature Granulocytes 0.1 10^3/uL (0-0.05); Absolute Lymphocytes 1.1 10^3/uL (1.2-3.4); Absolute Monocytes 1.3 10^3/uL (0.1-0.6); Absolute Neutrophils 8.3 10^3/uL (1.4-6.5); Hematocrit 44.7 % (37.0-47.0); Hemoglobin 14.2 g/dL (12.0-16.0); Mean Corp Hgb Conc. 31.8 g/dL (33.0-37.0); Mean Corpuscular Hgb 28.8 pg (27.0-31.0); Mean Corpuscular Volume 90.7 fL (81.0-99.0); Mean Platelet Volume 11.1 fL (7.4-10.4); Nucleated Red Blood Cells % 0 %; Platelet Count 281 10^3/uL (130-400); Red Blood Cell Count 4.93 10^6/uL (4.20-5.40); Red Cell Dist. Width 13.2 % (11.5-14.5); White Blood Cell Count 10.9 10^3/uL (4.8-10.8)
[2024-08-04 14:47] LABS: Free T4 1.36 ng/dl (0.78-2.19)
[2024-08-04 14:48] LABS: Free T3 2.86 pg/ml (2.77-5.27)
== END ==
LOC: REG 13:05
PROVIDERS: ATTENDING PHYSICIAN Physician Assistant Medical
DX: D72.829 Elevated white blood cell count, unspecified (principal); R79.89 Other specified abnormal findings of blood chemistry; D64.9 Anemia, unspecified
CPT/HCPCS: 36415; 84439; 84443; 84481; 85025

== ENCOUNTER → 2024-08-05 13:14 | Outpatient (REF) | payer MEDICARE, SELFPAY ==
[2024-08-05 14:02] LABS: % Basophils 0.5 % (0-2); % Eosinophils 0.8 % (0-6); % Immature Granulocytes 0.5 % (0-0.5); % Monocytes 7.2 % (1.7-9.3); Absolute Basophils 0.1 10^3/uL (0-0.2); Absolute Eosinophils 0.1 10^3/uL (0-0.7); Absolute Immature Granulocytes 0.1 10^3/uL (0-0.05); Absolute Lymphocytes 1.1 10^3/uL (1.2-3.4); Absolute Monocytes 0.8 10^3/uL (0.1-0.6); Absolute Neutrophils 9.6 10^3/uL (1.4-6.5); Hemoglobin 14.2 g/dL (12.0-16.0); Mean Corpuscular Hgb 29.2 pg (27.0-31.0); Mean Corpuscular Volume 88.5 fL (81.0-99.0); Mean Platelet Volume 10.9 fL (7.4-10.4); Nucleated Red Blood Cells % 0 %; Platelet Count 305 10^3/uL (130-400); Red Blood Cell Count 4.86 10^6/uL (4.20-5.40); White Blood Cell Count 11.7 10^3/uL (4.8-10.8)
[2024-08-05 16:52] LABS: ALT (SGPT) 17 U/L (0-35); AST (SGOT) 20 U/L (14-36); Albumin 4.4 g/dl (3.5-5.0); Alkaline Phosphatase 121 U/L (38-126); Blood Urea Nitrogen 19 mg/dl (7-17); Calcium 9.8 mg/dl (8.4-10.2); Carbon Dioxide 22 mmol/L (22-30); Chloride 104 mmol/L (98-107); Glucose 105 mg/dl (70-99); Potassium 4.1 mmol/L (3.5-5.1); Sodium 144 mmol/L (135-145); Total Bilirubin 0.3 mg/dl (0.2-1.3); Total Protein 7.3 g/dl (6.3-8.2); eGFR > 60.00
[2024-08-08 01:57] LABS: Thyroglobulin Antibodies <0.9 IU/mL (0.0-4.0); Thyroid Peroxidase Ab (TPO) 1.7 IU/mL (0.0-9.0)
[2024-08-08 01:58] LABS: Thyroglobulin 13.9 ng/mL (1.3-31.8)
== END ==
LOC: REG 13:14
PROVIDERS: ATTENDING PHYSICIAN Physician Assistant Medical
DX: D72.829 Elevated white blood cell count, unspecified (principal); R79.89 Other specified abnormal findings of blood chemistry
CPT/HCPCS: 36415; 80053; 84432; 85025; 86376; 86800; 87040

== ENCOUNTER 2024-08-12 14:01 | Inpatient (IN) | payer MEDICARE, SELFPAY ==
[2024-08-11 12:35] VITALS: BMI 20.8
[2024-08-12 12:42] VITALS: BP 153/44; BP_SYST 83; BMI 19.5
--- NOTE | 2024-08-12 13:45 | HP.FOC2 ---
Focused History & Physical
Chief Complaint
HPI:
Chief Complaint:
Large bilateral renal stones
Admitted post PCN placement for planned R PCNL
HPI / Indication for Planned Procedure:
79F with Large bilateral renal stones, possibly infection related
Recurrent UTI hx MDRO
Admitted post PCN placement for planned R PCNL
Relevant Past Medical History: Other (Kidney stones)
Relevant Social History: Negative
Relevant Family History: Negative
Relevant Past Surgical History: Positive for (L PCNL)
Review of Systems
Review of Pertinent Systems: All Systems Negative
Medication
See Medication form for detailed medications: No
Medication List (including Herbals & OTC):
multivitamin with folic acid 400 mcg tablet (Tab-A-Kia) 1 tab PO DAILY Supplement 05/23/20
atorvastatin 20 mg tablet 20 mg PO QPM High cholesterol 11/12/22
Lactobac no.2-Bifidobac no.1-S. thermo 112.5 billion cell capsule (Visbiome) 1 cap PO DAILY Supplement 12/17/22
prednisolone acetate 1 % eye drops,suspension 1 drp BOTH EYES TID Eye Condition 04/16/24
ascorbic acid (vitamin C) 1,000 mg tablet,extended release (Vitamin C ER) 1,000 mg PO DAILY Supplement 07/13/24
estradiol 0.01% (0.1 mg/gram) vaginal cream (Estrace) 1 g vaginal QWEEK Hormonal Agent 07/13/24
ferrous sulfate 142 mg (45 mg iron) tablet,extended release 142 mg PO DAILY Supplement 07/13/24
flavoring agent (bulk) 1 ea miscellaneous DAILY Supplement 07/13/24
pantoprazole 20 mg tablet,delayed release 20 mg PO DAILY Gastrointestinal Issue 07/13/24
Medications Reviewed: Yes
Allergies and Reactions
Patient has Allergies: Yes
Noted Allergies and Reactions:
Allergy/AdvReac Type Severity Reaction Status Date / Time
cefuroxime [From Ceftin] Allergy Unknown Verified 08/12/24 12:44
chocolate Allergy Pharmacy Verified 08/12/24 12:44
to Review
chocolate flavor Allergy CHOCOLATE-MIGRAINE Verified 08/12/24 12:44
HEADACHE
Pertinent Physical Exam
All Other Systems: Negative
Head/Neck: Normal
Lungs: Normal
Heart: Normal
Abdomen: Normal
Diagnosis / Assessment
79F with large bilateral renal calculi
s/p L PCNL last month
Admitted after R PCN placement for planned R PCNL tomorrow
Plan / Procedure
R PCNL tomorrow
Anesthesia/Sedation to be done by Anesthesia Provider: Yes
[2024-08-12] MEDS: MERREM 1000 MG IV (14:00)
[2024-08-12] MEDS: STERILE WATER FOR INJECTION 20 ML IV (14:00)
[2024-08-12 15:25] VITALS: BP 145/75
[2024-08-12 15:48] VITALS: BP 136/79
[2024-08-12] MEDS: NSS 1000 IV (15:53)
--- NOTE | 2024-08-12 17:06 | PTCARENOTE ---
Pt arrived to rm 327 from IR. PCN intact to R flank - dressing clean/dry - bloody yellow output, no clots. VSS. Oriented to room and call bryant, POC explained and verbalized understanding of all instructions. JOEY stockings and SCDs in place, IVF
started as ordered. Pt encouraged to order dinner in in anticipation of NPO after midnight for OR tomorrow - refused at thsi time, stating she shouldn't eat before surgery.
[2024-08-12] MEDS: LIPITOR 20 MG PO (18:22)
[2024-08-12] MEDS: TYLENOL 650 MG PO (20:29)
[2024-08-13] VITALS (38 sets, daily range): BP systolic 90–141; BP diastolic 38–81; BMI 19.5; BMI 22.0
[2024-08-13 09:53] LABS: Hematocrit 38.1 % (37.0-47.0); Hemoglobin 12.1 g/dL (12.0-16.0); Mean Corp Hgb Conc. 31.8 g/dL (33.0-37.0); Mean Corpuscular Hgb 28.8 pg (27.0-31.0); Mean Corpuscular Volume 90.7 fL (81.0-99.0); Mean Platelet Volume 9.9 fL (7.4-10.4); Platelet Count 330 10^3/uL (130-400); Red Cell Dist. Width 13.2 % (11.5-14.5); White Blood Cell Count 16.4 10^3/uL (4.8-10.8)
[2024-08-13 10:04] LABS: Blood Urea Nitrogen 12 mg/dl (7-17); Calcium 8.3 mg/dl (8.4-10.2); Carbon Dioxide 21 mmol/L (22-30); Chloride 114 mmol/L (98-107); Estimated Creatinine Clearance 58 ml/min; Glucose 103 mg/dl (70-99); Potassium 3.2 mmol/L (3.5-5.1); Sodium 146 mmol/L (135-145); eGFR > 60.00
--- NOTE | 2024-08-13 10:17 | W.IMMPOSTOP ---
Surgical Immed Post Op Note
-
Primary Surgeon: Mannfer
Assisting Surgeon: none
Pre-op Diagnosis: R renal staghorn stone
Post-op Diagnosis: same
Procedure Performed: R PCNL
Anesthesia Type: general
Specimen / Cultures: none
Estimated Blood Loss: 100cc
Complications: none
Operative Findings: Large volume renal pelvis and lower pole stones removed
Upper pole stones unable to be accessed
Good hemostasis at case conclusion
Ureteral JJ stent in place
18Fr [place] catheter nephrostomy tube
Espinoza
[2024-08-13] MEDS: ZOFRAN 4 MG IV (10:30)
[2024-08-13] MEDS: COMPAZINE 5 MG IV (10:45)
--- NOTE | 2024-08-13 11:05 | CON.INTV ---
Consultation
Consultation Request
Date/Time Consultation Requested: 08/13/2024
Date/Time Consultation Performed: 08/13/2024
Requesting Provider: Dr. Chino
Performing Provider: Dr. Madrigal
Reason for Consultation: Elective right percutaneous nephrostomy tube insertion
Medical History
-
Chief Complaint: Elective right percutaneous nephrolithotomy
History of Present Illness:
79-year-old female with a past medical history of nonobstructing bilateral renal stones/staghorn calculi with chronic cystitis, history of multidrug-resistant Proteus UTI, hypertension, hyperlipidemia, ADHD, history of grade D esophagitis, anemia,
history of SBO s/p ex lap with MELISSA and small bowel resection (2009), history of peptic ulcer and migraine headaches who presents with elective right percutaneous nephrolithotomy. Patient known to the urology service with last visit on 07/24/[address] Chino. She has had several UTIs in 2022 and 2023 due to ESBL�Proteus mirabilis. She is also been having gross hematuria. She usually urinates every 2 hours which she says has been happening her entire life. Discussion of right-sided
percutaneous nephrolithotomy with risks and benefits were discussed which she underwent today in addition to a ureteral JJ stent placement and a Ellison placement with EBL of 100 cc. Large volume renal pelvis and lower pole stones were removed, and
the upper pole stones were unfortunately unable to be accessed. Patient had good hemostasis at the case conclusion. She was transferred to the ICU for further care and biomedical scientist services consulted for additional management/recommendations.
When I saw the patient she was resting in bed in no acute distress on 5 L/min nasal cannula. She was sleepy but easily arousable to voice and answering my questions appropriately. NGT in place on LIWS. She denies chest pain, SOB, nausea, fevers
or chills.
PMHx: History of peptic ulcer, history of SBO, anemia, history of grade D esophagitis, ADHD, history of UTI, hypertension, hypercholesterolemia, migraine headaches, renal calculi
PSHx: Left-sided percutaneous nephrolithotomy, history of ex lap with MELISSA and small bowel resection (2009), X3, open antrectomy with Billroth II reconstruction, laparoscopic cholecystectomy with intraoperative cholangiogram (12/2022), eye
surgery (04/01)
Past Medical History
Past Medical History: Other (Above as per HPI)
Past Surgical History: Other (Above as per HPI)
Social History
Tobacco: Non-smoker
Alcohol: None
Drug: None
Family History
Family History: Cancer (Mother: Lung cancer) and Other (Father: Colonic polyps)
Allergies / Home Medications
Allergies
Allergy/AdvReac Type Severity Reaction Status Date / Time
cefuroxime [From Ceftin] Allergy Unknown Verified 08/12/24 12:44
chocolate Allergy Migraine Verified 08/13/24 13:35
headache
Home Medications
�Medication �Instructions �Recorded �Confirmed �Last Taken �Type
multivitamin with folic acid 400 1 tab PO DAILY Supplement 05/23/20 08/12/24 07/14/24 History
mcg tablet (Tab-A-Kia)
atorvastatin 20 mg tablet 20 mg PO QPM High cholesterol 11/12/22 08/12/24 07/14/24 History
Lactobac no.2-Bifidobac no.1-S. 1 cap PO DAILY Supplement 12/17/22 08/12/24 07/14/24 History
thermo 112.5 billion cell capsule
(Visbiome)
prednisolone acetate 1 % eye 1 drp BOTH EYES TID Eye Condition 04/16/24 08/12/24 07/14/24 History
drops,suspension
ascorbic acid (vitamin C) 1,000 mg 1,000 mg PO DAILY Supplement 07/13/24 08/12/24 07/14/24 History
tablet,extended release (Vitamin C
ER)
estradiol 0.01% (0.1 mg/gram) 1 g vaginal QWEEK Hormonal Agent 07/13/24 08/12/24 Unknown History
vaginal cream (Estrace)
ferrous sulfate 142 mg (45 mg 142 mg PO DAILY Supplement 07/13/24 08/12/24 07/14/24 History
iron) tablet,extended release
flavoring agent (bulk) 1 ea miscellaneous DAILY Supplement 07/13/24 08/12/24 07/14/24 History
pantoprazole 20 mg tablet,delayed 20 mg PO DAILY Gastrointestinal 07/13/24 08/12/24 07/14/24 History
release Issue
Review of Systems
-
History Source: Patient
All other systems: Negative unless noted
Vitals / Labs / Diagnostic Testing
Vital Signs
Temp Pulse Resp BP Pulse Ox
97.5 F 99 23 118/81 95
08/13/24 15:31 08/13/24 17:30 08/13/24 17:30 08/13/24 17:30 08/13/24 17:30
Diagnostic Testing:
Physical Exam
-
HEENT: Normocephalic and Anicteric
Cardiovascular: S1/S2, Rub (negative) and Peripheral Edema (negative)
Respiratory: Wheeze (negative), Rales (negative), Rhonchi (negative) and Non-Labored Respirations
GI: Soft, Non Distended, Non Tender and Normal Bowel Sounds
Neurology: Awake (Sleepy at times from recent anesthesia), Alert and Tremors (negative)
Skin: Warm and Dry
General: Respiratory Distress (negative), Pain (lower abdomen/RLQ), Chills (negative) and Sweats (negative)
Assessment
-
Assessment: 79-year-old female with a past medical history of nonobstructing bilateral renal stones/staghorn calculi with chronic cystitis, history of multidrug-resistant Proteus UTI, hypertension, hyperlipidemia, ADHD, history of grade D
esophagitis, anemia, history of SBO s/p ex lap with MELISSA and small bowel resection (2009), history of peptic ulcer and migraine headaches who presents with elective right percutaneous nephrolithotomy. Patient known to the urology service with last
visit on 07/24/[address] Chino. She has had several UTIs in 2022 and 2023 due to ESBL�Proteus mirabilis. She is also been having gross hematuria. She usually urinates every 2 hours which she says has been happening her entire life.
Discussion of right-sided percutaneous nephrolithotomy with risks and benefits were discussed which she underwent on 08/13/2024 in addition to a ureteral JJ stent placement and a Ellison placement with EBL of 100 cc. Large volume renal pelvis and
lower pole stones were removed, and the upper pole stones were unfortunately unable to be accessed. Patient had good hemostasis at the case conclusion. She was transferred to the ICU for further care and biomedical scientist services consulted for
additional management/recommendations.
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
Impression:
#Chronic bilateral staghorn calculi with recurrent UTIs with multidrug-resistant Proteus mirabilis s/p right percutaneous nephrolithotomy with ureteral JJ stent placement + Ellison (POD #0)
#Large volume right-sided renal pelvis + right lower pole stone removal (POD #0)
#Acute respiratory failure with hypoxia on supplemental oxygen
#Acute anemia
#Metabolic acidosis with normal anion gap
#History of gross hematuria
#Large volume ascites due to intraoperative saline fluid irrigation
#Biliary ductal dilatation
#Bilateral pleural effusions (R >L)
#History of recurrent UTIs due to MDR�Proteus mirabilis
#History of migraine headaches
#History of peptic ulcer disease
#ADHD
Plan:
- Post-operative management as per urology
- During the operation she had a large amount of saline fluid irrigation and now has large volume ascites with perinephric/retroperitoneal fluid causing abdominal distention and is awaiting IR for drainage
- Follow-up stone analysis
- Maintain NGT on LIWS for pos-toperative ileus prevention
- Pain control
- Trend H/H and transfuse if needed to keep Hb>7g/dL; keep plt>50k given post-operative status and hematuria seen from ellison post-operatively
- Monitor gross hematuria and if worsens then she may need CBI
- Maintain SpO2 >90-94% with supplemental oxygen and titrate down as tolerated
- Maintain MAP>65
- Replete electrolytes with K>4, Mg>2
- Maintain euglycemia with goal BG 140-180
- trend sHCO3 level
- prn nebulized bronchodilators - not currently bronchospastic
- Incentive spirometer encouraged 10x per hour for at least 4 hrs a day
- DVT ppx: SCDs for now given continued hematuria post-operatively
Critical care statement: A total of 40 minutes of critical care time was provided for this patient today. This includes management of unstable vital signs, evaluation of the patient at bedside, reviewing the patient's pertinent medical records
including radiographs, microbiology, laboratory evaluations, and discussion with primary team, consultants, pharmacy, nutrition, physical therapy, case management, charge nurse, critical care nursing, and respiratory therapy.
Data:
CTA abdomen/pelvis with/without contrast 08/13/2024:
Right perinephric extravasated contrast material directly injected/administered through the percutaneous catheter, or by retrograde catheter placement, as described. There is otherwise mild to moderate confluent perinephric fluid on the right.
No evidence of active hemorrhage.
Bilateral internal double-J nephroureteral stents. No hydronephrosis.
Bilateral staghorn calculi, undergone manipulation with diminished size, left greater than right.
Percutaneous balloon catheter present at the posterolateral margin of the right renal lower pole. The balloon is situated at the peripheral outer margin of the kidney, with the tip of the catheter located within the lower pole collecting system.
Following intravenous contrast, no acute extravasation of contrast material is identified to indicate active hemorrhage.
Bilateral prolonged nephrograms and diminished excretion of contrast material. Heterogeneous delayed nephrogram on the left. This could suggest diminished renal function and/or pyelonephritis in the proper clinical setting. Clinical correlation
recommended.
Large volume ascites.
Biliary ductal dilatation. Possibly related to patient age and prior cholecystectomy. Recommend correlation with liver function tests.
Right upper quadrant air-fluid level presumably within a loop of bowel, such as localized small bowel ileus or possibly within a loop of colon in the left upper quadrant. Examination is limited by lack of enteric contrast.
Small right pleural effusion with adjacent compressive atelectasis. Trace left pleural effusion.
[2024-08-13] MEDS: DILAUDID 0.25 MG IV (11:17)
--- NOTE | 2024-08-13 11:28 | W.PN.UPDATE ---
Update Note
Progress Note Update
Abdominal distension, N/V, and clotted nephrostomy tube in PACU
Suspected retroperitoneal fluid extravasation, possible bleeding associated
STAT CT angiogram
CBC, BMP
ICU admit with hospitalist consult
[2024-08-13 11:38] LABS: Blood Urea Nitrogen 13 mg/dl (7-17); Calcium 7.9 mg/dl (8.4-10.2); Carbon Dioxide 18 mmol/L (22-30); Chloride 116 mmol/L (98-107); Estimated Creatinine Clearance 50 ml/min; Glucose 114 mg/dl (70-99); Potassium 3.7 mmol/L (3.5-5.1); Sodium 145 mmol/L (135-145); eGFR > 60.00
[2024-08-13 11:47] LABS: % Basophils 0.3 % (0-2); % Eosinophils 0.2 % (0-6); % Immature Granulocytes 0.6 % (0-0.5); % Neutrophils 91.9 % (42.2-75.2); Absolute Basophils 0.1 10^3/uL (0-0.2); Absolute Immature Granulocytes 0.1 10^3/uL (0-0.05); Absolute Monocytes 0.2 10^3/uL (0.1-0.6); Hematocrit 36.6 % (37.0-47.0); Hemoglobin 11.4 g/dL (12.0-16.0); Mean Corp Hgb Conc. 31.1 g/dL (33.0-37.0); Mean Corpuscular Hgb 28.6 pg (27.0-31.0); Mean Corpuscular Volume 91.7 fL (81.0-99.0); Mean Platelet Volume 10.1 fL (7.4-10.4); Nucleated Red Blood Cells % 0 %; Platelet Count 217 10^3/uL (130-400); Red Blood Cell Count 3.99 10^6/uL (4.20-5.40); Red Cell Dist. Width 13.2 % (11.5-14.5); White Blood Cell Count 16.4 10^3/uL (4.8-10.8)
[2024-08-13] MEDS: NSS 1000 IV ×2 (12:49→13:19)
--- NOTE | 2024-08-13 13:19 | CON.HOSP ---
Consultation
-
Date/Time Consultation Requested: 08/13/2024
Date/Time Consultation Performed: 1120am
Requesting Provider: Dr Chino
Performing Provider: Dr uMnoz
Reason for Consultation: ICU care
Family Physician
-
Family Physician: Jitendra Rodriguez PA-C
Chief Complaint
-
Postoperative care
History of Present Illness
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 Intraoperative finding consistent with large volume renal pelvis and lower pole
stones removed. Inability to assess upper pole stones. Good hemostasis reported achieved at the conclusion. Patient has right percutaneous nephrostomy with Espinoza catheter in place. Postoperatively patient developed abdominal distention and
emesis requiring placement of NG tube. Given hemorrhagic output through PCN and Espinoza as well as new GI symptoms CT angiogram of abdomen and pelvis has been ordered. Patient is being admitted to ICU for close monitoring. Hospitalist and intensive
consult called for comanagement.
Medical History
Past Medical History
Past Medical History: Reports HTN and Other (Recurrent UTI.); Denies CAD, CHF, COPD or IDDM
Past Surgical History: Reports Cholecystectomy and Other
Social History
Tobacco: Non-smoker
Alcohol: None
Drug: None
Living: With Family
Family History
Family History: Reviewed & Not Pertinent
Allergies / Home Medications
Allergies reflects when Allergies were last updated in [employer].
Home Medications with original date entered in [employer] [facility]
Allergy/Medication List:
Allergies
Allergy/AdvReac Type Severity Reaction Status Date / Time
cefuroxime [From Ceftin] Allergy Unknown Verified 08/12/24 12:44
chocolate Allergy Pharmacy Verified 08/12/24 12:44
to Review
chocolate flavor Allergy CHOCOLATE-MIGRAINE Verified 08/12/24 12:44
HEADACHE
Home Medications
multivitamin with folic acid 400 mcg tablet (Tab-A-Kia) 1 tab PO DAILY Supplement 05/23/20
atorvastatin 20 mg tablet 20 mg PO QPM High cholesterol 11/12/22
Lactobac no.2-Bifidobac no.1-S. thermo 112.5 billion cell capsule (Visbiome) 1 cap PO DAILY Supplement 12/17/22
prednisolone acetate 1 % eye drops,suspension 1 drp BOTH EYES TID Eye Condition 04/16/24
ascorbic acid (vitamin C) 1,000 mg tablet,extended release (Vitamin C ER) 1,000 mg PO DAILY Supplement 07/13/24
estradiol 0.01% (0.1 mg/gram) vaginal cream (Estrace) 1 g vaginal QWEEK Hormonal Agent 07/13/24
ferrous sulfate 142 mg (45 mg iron) tablet,extended release 142 mg PO DAILY Supplement 07/13/24
flavoring agent (bulk) 1 ea miscellaneous DAILY Supplement 07/13/24
pantoprazole 20 mg tablet,delayed release 20 mg PO DAILY Gastrointestinal Issue 07/13/24
Review of Systems
-
Unable to obtain full review of systems at this time due to: Acuity
Physical Exam
Vital Signs
Vital Signs
Temp Pulse Resp BP Pulse Ox
97.4 F 88 17 116/60 99
08/13/24 13:00 08/13/24 13:00 08/13/24 13:00 08/13/24 13:00 08/13/24 13:00
Physical Exam
General: Well Developed, Well Nourished and No Apparent Distress
HEENT: Normocephalic, Moist Mucous Membranes and Atraumatic
Respiratory: Clear
Cardiac: S1/S2 and Regular Rhythm; Negative Murmur or Rub
GI: Distended and Other (NG tube in place with bilious fluid); Negative Tender
Rectal: Deferred by Provider
Genito-urinary: Other (Right PCN. Espinoza catheter in place.)
Musculoskeletal: No Clubbing, No Cyanosis and No Edema
Skin: Negative Rash
Neuro: Sedated
Laboratory Results
-
Laboratory Results
08/13/24 11:20
Impression / Plan
-
IMPRESSION:
Status post right PCNL for recurrent UTI with resistant organism and bilateral staghorn calculi.
Postoperative abdominal distention and emesis.
Other conditions:
Essential hypertension
Dyslipidemia.
History of acute cholecystitis status post cholecystectomy with intraoperative ERCP
PLAN:
Postoperative emesis with abdominal distention
NG tube placed in PACU
Has a right PCN and Espinoza catheter in place with hemorrhagic output
Hemodynamically stable
Repeated hemoglobin and renal function stable.
CTA pending.
In discussion with urology, there is a very large volume of fluid which is 7900 and that leaked during the procedure.
Bilious output less likely from ileus and likely from increased intra-abdominal pressure.
Interventional radiology consulted for percutaneous drain of intra-abdominal fluid.
Monitor hemoglobin and BMP closely.
Continue NG tube for decompression
Aspiration precautions
Continue IV fluids while n.p.o.
IV PPI
Monitor in ICU.
--- NOTE | 2024-08-13 14:00 | PTCARENOTE ---
Addendum entered by Jame Barboza, RN 08/13/24 14:46:
Right nare NGT at ~[address] draining green bilious output, connected to LIWS. Plan discussed with Living Skills Advisor Dr. Madrigal.
Original Note:
Pt rec'd into ICU 3369 from PACU, AOx3, drowsy but arousable.VSS, see flowsheet. Pt complains of 9/10 pain in right hand, medicated with PRN Dilaudid with +result. Pt with right perc nephrostomy drain in place, sanguinous output in tube and bag
observed, dressing reinforced with 2 ABD with assist of GRAPHIC ART DESIGNER and ICU RNs, pt repositioned, orders reviewed, sa02 99% on 6L, 02 weaned to 4L. Labs drawn and sent, left arm PIV noted to be infiltrated/leaking/pt wincing in pain with flush, removed
by this RN. Right had PIV patent, NSS infusing at 100/hr per orders. Pt sleeping s/p Dilaudid administration. Safe environment maintained.
[2024-08-13] MEDS: PROTONIX IV 40 MG IV (14:09)
[2024-08-13] MEDS: NSS (PRESERVATIVE FREE) 10 ML IV (14:09)
[2024-08-13] MEDS: DILAUDID 0.5 MG IV ×2 (14:10→20:33)
[2024-08-13 14:42] LABS: Hemoglobin 10.7 g/dL (12.0-16.0)
[2024-08-13 14:51] LABS: Blood Urea Nitrogen 14 mg/dl (7-17); Calcium 7.7 mg/dl (8.4-10.2); Carbon Dioxide 16 mmol/L (22-30); Chloride 117 mmol/L (98-107); Estimated Creatinine Clearance 58 ml/min; Glucose 132 mg/dl (70-99); Potassium 3.5 mmol/L (3.5-5.1); Sodium 145 mmol/L (135-145); eGFR > 60.00
--- NOTE | 2024-08-13 15:35 | PTCARENOTE ---
Pt taken to IR for paracentesis at ~15:15, report given to Gaby TORRES.
--- NOTE | 2024-08-13 15:59 | W.PN.UPDATE ---
Update Note
Progress Note Update
Labs stable with slight decline in HGB
Evaluation with CT showed no evidence of active bleeding from the kidney
Large volume ascites and perinephric/retroperitoneal fluid is due to saline fluid irrigation during procedure, and the cause of abdominal distension
Discussed with IR who will place a drain to decompress and reduce fluid volume
NGT in place for post op ileus likely due to increased abdominal pressure
Repeat BMP/CBC this evening
Trend HGB Q8
Monitor electrolytes
Patient and family updated with plan
Appreciate ICU/hospitalist care
--- NOTE | 2024-08-13 16:24 | PTCARENOTE ---
Pt rec'd back to ICU from IR dept, no paracentesis performed per Dr. Donahue. Per IR RN, abdomen appears rounder than previously. Dr. Chino at bedside in ICU now to assess patient, plan discussed and updated at bedside by .
[2024-08-13] MEDS: STERILE WATER FOR INJECTION 10 ML IV (20:33)
[2024-08-13] MEDS: MERREM 500 MG IV (20:33)
--- NOTE | 2024-08-13 20:35 | PTCARENOTE ---
Received pt from previous RN. Pt is AAOx3. NSR w/ PVCs. Received pt on RA O2 sat 91%, the placed on 2L NC O2 sat 95%. NGT right nare to low-int suction. Espinoza in place, blood tinged, hygiene provided. Right nephrostomy in place, dressing saturated
and changed. NS infusing @ 100 ml/hr. Pt c/o 05/19 pain where her nephrostomy tube is, PRN Dilaudid given (see MAR). Labs drawn. Mouth care provided. Pt is laying in bed with call bryant in reach. Safe environment maintained.
[2024-08-13 21:18] LABS: Hemoglobin 10.1 g/dL (12.0-16.0)
[2024-08-13 21:42] LABS: Blood Urea Nitrogen 15 mg/dl (7-17); Calcium 8.1 mg/dl (8.4-10.2); Carbon Dioxide 14 mmol/L (22-30); Chloride 118 mmol/L (98-107); Estimated Creatinine Clearance 51 ml/min; Glucose 118 mg/dl (70-99); Potassium 3.9 mmol/L (3.5-5.1); Sodium 145 mmol/L (135-145); eGFR > 60.00
[2024-08-13] MEDS: SODIUM BICARBONATE 1150 MEQ IV (22:22)
--- NOTE | 2024-08-13 23:41 | PTCARENOTE ---
Systems reviewed. Pt weaned to 1L NC O2 sat 96%.
[2024-08-14] VITALS (38 sets, daily range): BP systolic 87–158; BP diastolic 40–98; BMI 22.0
[2024-08-14] MEDS: MERREM 500 MG IV ×4 (02:44→19:56)
[2024-08-14] MEDS: STERILE WATER FOR INJECTION 10 ML IV ×4 (02:44→19:57)
[2024-08-14] MEDS: DILAUDID 0.5 MG IV ×3 (02:54→13:27)
[2024-08-14 03:40] LABS: Hemoglobin 10.2 g/dL (12.0-16.0)
--- NOTE | 2024-08-14 03:40 | PTCARENOTE ---
Systems reviewed. Pt with large amount of serosanguineous drainage from her nephrostomy tube, dressing changed. PRN Dilaudid given for throat, left ear pain and right flank pain where nephrostomy tube is (see MAR).
--- NOTE | 2024-08-14 03:50 | PTCARENOTE ---
Systems reviewed. Pt with large amount of serosanguineous drainage around her nephrostomy tube, dressing changed. PRN Dilaudid given for throat, left ear pain and right flank pain where nephrostomy tube is (see MAR).
[2024-08-14 03:52] LABS: Hematocrit 31.2 % (37.0-47.0); Hemoglobin 10.2 g/dL (12.0-16.0); Mean Corp Hgb Conc. 32.7 g/dL (33.0-37.0); Mean Corpuscular Hgb 29.3 pg (27.0-31.0); Mean Corpuscular Volume 89.7 fL (81.0-99.0); Mean Platelet Volume 9.6 fL (7.4-10.4); Platelet Count 313 10^3/uL (130-400); Red Blood Cell Count 3.48 10^6/uL (4.20-5.40); Red Cell Dist. Width 13.7 % (11.5-14.5); White Blood Cell Count 27.3 10^3/uL (4.8-10.8)
[2024-08-14 03:58] LABS: Blood Urea Nitrogen 15 mg/dl (7-17); Calcium 8.4 mg/dl (8.4-10.2); Carbon Dioxide 19 mmol/L (22-30); Chloride 117 mmol/L (98-107); Estimated Creatinine Clearance 44 ml/min; Glucose 165 mg/dl (70-99); Magnesium 1.8 mg/dl (1.6-2.3); Phosphorus 4.5 mg/dl (2.5-4.5); Potassium 3.7 mmol/L (3.5-5.1); Sodium 148 mmol/L (135-145); eGFR > 60.00
[2024-08-14 06:24] LABS: % Basophils 0.2 % (0-2); % Immature Granulocytes 0.7 % (0-0.5); % Lymphocytes 2.9 % (20.5-51.1); % Neutrophils 90.2 % (42.2-75.2); Absolute Basophils 0.1 10^3/uL (0-0.2); Absolute Immature Granulocytes 0.2 10^3/uL (0-0.05); Absolute Lymphocytes 0.8 10^3/uL (1.2-3.4); Absolute Monocytes 1.6 10^3/uL (0.1-0.6); Absolute Neutrophils 24.6 10^3/uL (1.4-6.5); Nucleated Red Blood Cells % 0 %
[2024-08-14] MEDS: NSS (PRESERVATIVE FREE) 10 ML IV (07:49)
[2024-08-14] MEDS: PROTONIX IV 40 MG IV (07:49)
--- NOTE | 2024-08-14 08:22 | W.PN.INTV ---
Today's Communication / Plan
Recommendations
Pain control
Follow-up stone analysis
Clamp NGT and start clear liquid diet, as per urology
Monitor for her abdominal distention which is from instill fluids intraoperatively; no current need for IR drainage
Encourage incentive spirometer 10x per hour for at least 4 hrs a day
Aspiration precautions
Trend serum HCO3 and venous pH --> can likely stop bicarb gtt tomorrow AM if HCO3>18 and pH>7.3
Patient is stable for downgrade out of ICU to telemetry - no additional recommendations at this time. Felt Dyeing Machine Tender/Pulmonary services will now sign off. Please re-consult if there are any additional questions/concerns, or if patient's respiratory
status deteriorates.
Assessment
-
Assessment: 79-year-old female with a past medical history of nonobstructing bilateral renal stones/staghorn calculi with chronic cystitis, history of multidrug-resistant Proteus UTI, hypertension, hyperlipidemia, ADHD, history of grade D
esophagitis, anemia, history of SBO s/p ex lap with MELISSA and small bowel resection (2009), history of peptic ulcer and migraine headaches who presents with elective right percutaneous nephrolithotomy. Patient known to the urology service with last
visit on 07/24/[address] Chino. She has had several UTIs in 2022 and 2023 due to ESBL�Proteus mirabilis. She is also been having gross hematuria. She usually urinates every 2 hours which she says has been happening her entire life.
Discussion of right-sided percutaneous nephrolithotomy with risks and benefits were discussed which she underwent on 08/13/2024 in addition to a ureteral JJ stent placement and a Ellison placement with EBL of 100 cc. Large volume renal pelvis and
lower pole stones were removed, and the upper pole stones were unfortunately unable to be accessed. Patient had good hemostasis at the case conclusion. She was transferred to the ICU for further care and medical office secretary services consulted for
additional management/recommendations.
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
Impression:
#Chronic bilateral staghorn calculi with recurrent UTIs with multidrug-resistant Proteus mirabilis s/p right percutaneous nephrolithotomy with ureteral JJ stent placement + Ellison (POD #1)
#Large volume right-sided renal pelvis + right lower pole stone removal (POD #1)
#Acute respiratory failure with hypoxia on supplemental oxygen - improving
#Acute anemia
#Metabolic acidosis with normal anion gap - improving
#History of gross hematuria
#Large volume ascites due to intraoperative saline fluid irrigation - ascites improving
#Biliary ductal dilatation
#Bilateral pleural effusions (R >L)
#History of recurrent UTIs due to MDR�Proteus mirabilis
#History of migraine headaches
#History of peptic ulcer disease
#ADHD
Plan:
- Post-operative management as per urology
- During the operation she had a large amount of saline fluid irrigation and subsequently had large volume ascites with perinephric/retroperitoneal fluid causing abdominal distention - this abd distension and discomfort has markedly improved today
- no need for drainage at this juncture - c/t monitor
- Follow-up stone analysis
- Stop NGT suction, and allow clears, per urology
- ADAT as per Urology
- Pain control
- Trend H/H and transfuse if needed to keep Hb>7g/dL; keep plt>50k given post-operative status and hematuria seen from ellison post-operatively
- Monitor gross hematuria and if worsens then she may need CBI - currently she has yellow urine, hence no need for CBI at this time
- Maintain SpO2 >90-94% with supplemental oxygen and titrate down as tolerated
- If resting SaO2 is <96% at rest then check an ambulatory pulse oximetry prior to discharge
- Maintain MAP>65
- Continue meropenem (started 08/11/2024)
- Follow up blood Cx (collected today)
- Replete electrolytes with K>4, Mg>2
- Maintain euglycemia with goal BG 140-180
- trend sHCO3 level and pH with VBG
- If pH >7.3 and serum HCO3>18 then stop bicarb gtt
- prn nebulized bronchodilators - not currently bronchospastic
- Incentive spirometer encouraged 10x per hour for at least 4 hrs a day
- DVT ppx: SCDs for now given continued hematuria post-operatively
Patient is stable for downgrade out of ICU to telemetry, and this was confirmed to be appropriate after discussing case with urology (Dr. Chino). No additional recommendations at this time. Felt Dyeing Machine Tender/Pulmonary services will now sign off. Thank
you for allowing us to be involved in the care of this patient. Please reconsult if there are any additional questions/concerns, or if patient's respiratory status deteriorates.
Data:
CTA abdomen/pelvis with/without contrast 08/13/2024:
Right perinephric extravasated contrast material directly injected/administered through the percutaneous catheter, or by retrograde catheter placement, as described. There is otherwise mild to moderate confluent perinephric fluid on the right.
No evidence of active hemorrhage.
Bilateral internal double-J nephroureteral stents. No hydronephrosis.
Bilateral staghorn calculi, undergone manipulation with diminished size, left greater than right.
Percutaneous balloon catheter present at the posterolateral margin of the right renal lower pole. The balloon is situated at the peripheral outer margin of the kidney, with the tip of the catheter located within the lower pole collecting system.
Following intravenous contrast, no acute extravasation of contrast material is identified to indicate active hemorrhage.
Bilateral prolonged nephrograms and diminished excretion of contrast material. Heterogeneous delayed nephrogram on the left. This could suggest diminished renal function and/or pyelonephritis in the proper clinical setting. Clinical correlation
recommended.
Large volume ascites.
Biliary ductal dilatation. Possibly related to patient age and prior cholecystectomy. Recommend correlation with liver function tests.
Right upper quadrant air-fluid level presumably within a loop of bowel, such as localized small bowel ileus or possibly within a loop of colon in the left upper quadrant. Examination is limited by lack of enteric contrast.
Small right pleural effusion with adjacent compressive atelectasis. Trace left pleural effusion.
Total time spent today was 57 minutes for this encounter. Time includes reviewing laboratory test/imaging results, reviewing pertinent medical records, obtaining and reviewing medical history, performing an appropriate exam, ordering medications,
tests and procedures. Time also includes documentation of this encounter, coordinating patient care and communicating with other healthcare professionals. Total time does not include separately billed tests performed on this date of service.
Subjective Dataa
Subjective Data
Date of Service:
Date of Service: August 14, 2024
Chief Complaint: Felt Dyeing Machine Tender Follow Up
Subjective:
Pt was seen and evaluated this AM. R-sided PCN tube is not draining. Ellison is draining yellow urine. She feels well, just has some right-sided pain where the percutaneous nephrostomy tube is, and pain is mainly when she moves. Currently, heart
rate 102, BP 128/43 and she is saturating 91% on 1 L/min. She denies chest pain, PEARSON, nausea, fevers or chills.
Review of Systems
General: Other (Negative unless mentioned above)
Objective Data
Data Reviewed
Vital Signs / I&O / Oxygen:
Vital Signs
Temp Pulse Resp BP Pulse Ox
97.7 F 107 27 126/59 93
08/14/24 07:55 08/14/24 06:00 08/14/24 06:00 08/14/24 06:00 08/14/24 06:00
Intake and Output
08/13/24 08/14/24 08/15/24
06:59 06:59 06:59
Intake Total 1080 / 1080 1340 / 1340
Output Total 450 / 450 1520 / 1520
Balance 630 / 630 -180 / -180
SaO2 93
Nasal Cannula flow liters per 1
minute
Physical Exam
General: Respiratory Distress (negative), Comfortable, Pain (Right lower quadrant where percutaneous nephrostomy tube is, with pain mainly during movement), Chills (negative) and Sweats (negative)
HEENT: Normocephalic and Anicteric
Cardiovascular: S1-S2, Murmur (AILYN heard across precordium), Peripheral Edema (negative) and Other (Mildly tachycardic)
Respiratory: Clear, Wheeze (negative), Crackles (negative), Rhonchi (negative) and Non-Labored Respirations
GI: Soft, Non Distended, Non Tender and Normal Bowel Sounds
Neurology: Tremors (negative) and Other (Sleepy but easily arousable and answering questions appropriately)
Skin: Warm, Dry, Cyanosis (negative), Jaundice (negative) and Other (Right lower quadrant PCN with serosanguinous fluid inside bulb; +Ellison with yellow urine seen in bag)
Labs/Micro/Reports
Lab Data
08/14/24 03:27
08/14/24 03:27
--- NOTE | 2024-08-14 08:29 | W.PN.URO.CBU ---
Addendum entered and electronically signed by Zbigniew Chino MD 08/14/24 13:06:
Hyperchloremic metabolic acidosis suspected due to normal saline resorption
Bicarb dose given last night with some improvement today
Will start an additional 150mEq dose but appreciate hospitalist recs on this
Original Note:
Today's Communication / Plan
-
NGT clamp trial with clears
Trend labs
Continue meropenem, trend WBC
Mantain drains
Assessment / Plan
-
79F with R staghorn renal stone
s/p R PCNL 08/13
Complicated by abdominal distension and clotted nephrostomy post op
CT showed large volume peritoneal and retroperitoneal fluid due to leaking of irrigant during surgery
No active bleed from kidney
Fluid collection/abdominal distension
- Improvement in abdominal distension this AM
- Significant volume of fluid leaking from around nephrostomy overnight probably includes some drainage of saline irrigant
Post op bleeding
- HGB stable this AM with no active bleeding suspected
- Continue to trend daily
- Maintain percutaneous drain at this time. Plan to take down balloon later this afternoon and likely remove 08/15
- Ellison removal prior to discharge
Ileus
- Post op bilious emesis s/p NGT placement
- Had some flatus with liquid stool 08/13 and minimal NGT output
- Clamp NGT, sips of clears this AM
- Consider tube removal in PM
Leukocytosis
- Significant elevation, suspect reactive but infection possible. No fevers
- Urine culture
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
Diagnosis
-
Date of Service: August 14, 2024
-
Patient Diagnosis:
R staghorn renal stone
Retroperitoneal and peritoneal fluid collection from saline irrigant
Post op bleeding
Bilious emesis
Leukocytosis
Post Op s/p PCNL 08/13/24
Subjective
-
Has some flatus and liquid stool yesterday
Flank pain controlled
No abdominal pain
Most bothered by NG tube
Objective
-
Vital Signs
Temp Pulse Resp BP Pulse Ox
98.2 F 107 27 126/59 93
08/14/24 03:30 08/14/24 06:00 08/14/24 06:00 08/14/24 06:00 08/14/24 06:00
Intake and Output
08/13/24 08/14/24 08/15/24
06:59 06:59 06:59
Intake Total 1080 / 1080 1340 / 1340
Output Total 450 / 450 1520 / 1520
Balance 630 / 630 -180 / -180
Intake:
Oral fluids 1080 / 1080 0 / 0
IV fluids (Total) 1340 / 1340
D5w 1,000 ml @ 80 mls/hr IV . 640 / 640
[id number] CAROL with Sodium
Bicarbonate 150 Meq Rx#:
[id number]
Nss 1,000 ml @ 100 mls/hr IV . 700 / 700
Q10H CAROL Rx#:[id number]
Output:
Urinary Drain Output (Total) 100 / 100 495 / 495
Right Nephrostomy 100 / 100 495 / 495
Gastrointestinal tube output ( 250 / 250
Total)
[place] Sump 250 / 250
Urine, Ellison 775 / 775
Urostomy output 350 / 350
Other:
Number of approximated SMALL 1
amounts of urine
How many times incontinent 3
MODERATE amount urine
Laboratory Results
08/14/24 03:27
08/14/24 03:27
Physical Exam
-
General - well developed, well nourished, no acute distress
Chest - unlabored, NGT in place
Abdomen - soft, non-tender, distended but inproved from yesterday
NGT in place, bilious in tubing but no new output
- ellison with minimal hematuria, R PCN with light red urine output
Skin - warm & dry with no rash
Neuro - AOx3, no motor deficits
Extremities - no cyanosis, no edema
Dressing - clean, dry, intact
--- NOTE | 2024-08-14 10:17 | PTCARENOTE ---
Received pt from previous RN. Pt is AAOx3, occasionally forgetful with confused conversation. Currently in SR/trigeminy. Received pt on 1L NC, SpO2 94%. NGT right nare to low-int suction. Espinoza in place, blood tinged, hygiene provided. Right
nephrostomy in place, dressing scant light pink urine. D5 infusing @ 80 ml/hr. Pt c/o pain in throat and L ear, presumably from NGT. PRN Dilaudid given (see MAR). Mouth care provided. Pt is laying in bed with call bryant in reach. Safe environment
maintained.
--- NOTE | 2024-08-14 10:22 | PTCARENOTE ---
NGT clamped as ordered. Sips tolerated
--- NOTE | 2024-08-14 13:00 | PTCARENOTE ---
Notified Dr. Chino about minimal drainage from perc drainage. Ordered to clamp NGT and adv to clear liq diet.
[2024-08-14] MEDS: SODIUM BICARBONATE 1150 MEQ IV (13:17)
--- NOTE | 2024-08-14 14:55 | CM ---
CM following re: discharge planning.
Reviewed pt's chart, met with pt and pt's saul at bedside.
Pt is POD #1 s/p R PCNL, NGT, 2L NC, continue supportive care.
Pt reports she lives with [address]SH duplex next her daughter house, has 3 supportive children. 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 No DME, VN or SNF history.
D/C plan: home with anticipated no needs. Family to transport at discharge.
CM will follow with discharge plan updaters as hospitalization progresses
--- NOTE | 2024-08-14 16:09 | W.PN.HOSP.TC ---
Today's Communication/Plan
-
NG tube clamping.
Clear liquid diet
Wean off IV fluids if NG tube removed.
Monitor hemoglobin.
Continue empiric antibiotics following white count and blood cultures.
Assessment / Plan
Assessment / Plan
Impression:
Status post right PCNL for staghorn colliculi on 08/13inpatient for recurrent UTI and resistant organism
Postoperative abdominal distention likely combination of ileus and intra-abdominal fluid infused during the procedure.
Postoperative bleeding via PCN and Espinoza catheter
Acute blood loss anemia
Acute hypoxic respiratory insufficiency likely due to bilateral atelectasis
Normal anion gap metabolic acidosis suspect secondary to GI losses with postoperative emesis.
Other conditions:
Essential hypertension
Dyslipidemia
History of acute cholecystitis status postcholecystectomy with intraoperative ERCP
Plan:
Postoperative abdominal distention with episode of emesis improved with NG tube decompression
Suspect this is multifactorial and secondary to ileus and intra-abdominal fluid being infused over the procedure
No fluid collection to drain by IR.
Improving with decreased abdominal distention while NG tube is in place and clamped.
Plan is to remove NG tube today and advance diet slowly.
Continue IV PPI
Acute postoperative blood loss anemia with hemoglobin down from 12�to 10.2, expected close with no evidence of ongoing bleeding
Suspect dilutional effect as well.
CTA postoperatively negative for acute bleeding
Monitor hemoglobin.
Status post right PCNL.
Espinoza catheter and right PCN is in place as per urology.
Metabolic acidosis with normal anion gap suspect secondary to emesis.
Hemodynamically stable
Okay to wean off IV fluids with bicarb once diet has been advanced to liquids
Noted with increased white count likely secondary to stress.
Afebrile, nontoxic-appearing
Has bibasilar atelectasis visible on CT scan of the abdomen with minimal bilateral pleural effusions. Doubt aspiration.
Empiric antibiotics meropenem (prior urine culture with ESBL)
Blood cultures pending
Follow CBC
Transfer out of ICU
Anticipated Discharge: 24 - 48 hours
Subjective/Interval History
-
Date of Service: August 14, 2024
Objective Data
-
Vital Signs:
Vital Signs
Temp Pulse Resp BP Pulse Ox
98.0 F 100 20 143/67 96
08/14/24 16:03 08/14/24 15:00 08/14/24 15:00 08/14/24 15:00 08/14/24 15:00
I&O
08/13/24 08/14/24 08/15/24
06:59 06:59 06:59
Intake Total 1080 / 1080 1340 / 1420 780 / 780
Output Total 450 / 450 1520 / 1520 440 / 440
Balance 630 / 630 -180 / -100 340 / 340
Physical Exam
-
General: Well Developed and No Apparent Distress
HEENT: Normocephalic, Atraumatic and Moist Mucous Membranes
Respiratory: Clear to Auscultation
Cardiac: Regular Rhythm and S1/S2; Negative Murmur, Rub or Gallop
GI: Soft, Nontender, Nondistended, Normal Bowel Sounds and Other (NG tube in place); Negative Organomegaly
Rectal: Deferred by Provider
Genito-urinary: Other (Right PCN. Espinoza catheter)
Musculoskeletal: No Clubbing, No Cyanosis and No Edema
Skin: Negative Rash
Neuro: Awake, Alert, Oriented, AO x 3 and Nonfocal/Grossly Intact
[2024-08-14 16:19] LABS: Urine Albumin 1+ (Neg - Trace); Urine Bilirubin Negative (Negative); Urine Character Clear (Clear); Urine Color Yellow; Urine Glucose Negative (Negative); Urine Ketone Negative (Negative); Urine Leukocyte 2+ (Negative); Urine Nitrite Negative (Negative); Urine Occult Blood 4+ (Negative); Urine Specific Gravity 1.015 (<1.030); Urine Urobilinogen Negative (Neg - 1+)
[2024-08-14 16:26] LABS: Urine Red Blood Cell 30-40 /HPF (0-2); Urine Squamous Cell 0-2 /LPF (Few); Urine White Cell 80-90 /HPF (0-5)
[2024-08-14 16:27] LABS: Urine Bacteria Few (Negative)
--- NOTE | 2024-08-14 17:25 | PTCARENOTE ---
removed NGT. Pt without c/o nausea.
[2024-08-15] VITALS (8 sets, daily range): BP systolic 114–136; BP diastolic 54–69; PULSE 96; O2SAT 92
[2024-08-15] MEDS: MERREM 500 MG IV ×4 (03:03→22:08)
[2024-08-15] MEDS: STERILE WATER FOR INJECTION 10 ML IV ×4 (03:04→22:08)
[2024-08-15 07:03] LABS: Hematocrit 29.2 % (37.0-47.0); Hemoglobin 9.4 g/dL (12.0-16.0); Mean Corp Hgb Conc. 32.2 g/dL (33.0-37.0); Mean Corpuscular Hgb 29.3 pg (27.0-31.0); Mean Platelet Volume 9.9 fL (7.4-10.4); Platelet Count 286 10^3/uL (130-400); Red Blood Cell Count 3.21 10^6/uL (4.20-5.40); Red Cell Dist. Width 13.5 % (11.5-14.5)
[2024-08-15 07:25] LABS: Blood Urea Nitrogen 12 mg/dl (7-17); Calcium 8.2 mg/dl (8.4-10.2); Carbon Dioxide 34 mmol/L (22-30); Chloride 104 mmol/L (98-107); Estimated Creatinine Clearance 59 ml/min; Glucose 115 mg/dl (70-99); Magnesium 1.9 mg/dl (1.6-2.3); Phosphorus 2.2 mg/dl (2.5-4.5); Potassium 3.3 mmol/L (3.5-5.1); Sodium 143 mmol/L (135-145); eGFR > 60.00
--- NOTE | 2024-08-15 08:33 | W.PN.URO.CBU ---
Today's Communication / Plan
-
plug nephrostomy
UOOB
advance diet as tolerated
supplement K
continue antibx
trend labs
Assessment / Plan
-
79F with R staghorn renal stone
s/p R PCNL 08/13
Complicated by abdominal distension and clotted nephrostomy post op
CT showed large volume peritoneal and retroperitoneal fluid due to leaking of irrigant during surgery
No active bleed from kidney
Fluid collection/abdominal distension
- Improvement in abdominal distension this AM
- Significant volume of fluid leaking from around nephrostomy overnight probably includes some drainage of saline irrigant- seems to be slowing
Post op bleeding
- HGB tali slightly this am- but with no active bleeding suspected
- Continue to trend daily
- Maintain percutaneous drain at this time. Plugged. If tolerates and hgb stable in am- will remove perc tube and observe
- Ellison removal prior to discharge
Ileus
- Post op bilious emesis s/p NGT placement
- Had some flatus with liquid stool 08/13 and minimal NGT output
- NG removed yestereday- pt c/o of very sore throar- likely due to NG- wants to try soft diet- will order and observe
Leukocytosis
- Significant elevation, suspect reactive but infection possible. No fevers- Wbc downtrending
- Urine culture pending
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
Hypokalenia
- supplement K today
Diagnosis
-
Date of Service: August 15, 2024
-
Patient Diagnosis:
R staghorn renal stone
Retroperitoneal and peritoneal fluid collection from saline irrigant
Post op bleeding
Bilious emesis
Leukocytosis
Post Op s/p PCNL 08/13/24
Subjective
-
pt out of ICU
vss/labs stable- except low K
urine via ellison clear
some drainage from right nephrostomy- ciara with some clts- leakage around cath seems to have abated
pt c/o of vary sore throat and some difficulty swallowing along with nasal soreness
Objective
-
Vital Signs
Temp Pulse Resp BP Pulse Ox
98.0 F 92 16 114/61 93
08/15/24 08:18 08/15/24 08:18 08/15/24 08:18 08/15/24 08:18 08/15/24 08:18
Intake and Output
08/14/24 08/15/24 08/16/24
06:59 06:59 06:59
Intake Total 1340 / 1420 1560 / 1560
Output Total 1520 / 1520 1215 / 1215
Balance -180 / -100 345 / 345
Intake:
Oral fluids 0 / 0 480 / 480
IV fluids (Total) 1340 / 1420 1080 / 1080
D5w 1,000 ml @ 100 mls/hr IV . 600 / 600
[id number] CAROL with Sodium
Bicarbonate 150 Meq Rx#:
[id number]
D5w 1,000 ml @ 80 mls/hr IV . 640 / 720 480 / 480
[id number] CAROL with Sodium
Bicarbonate 150 Meq Rx#:
[id number]
Nss 1,000 ml @ 100 mls/hr IV . 700 / 700
Q10H CAROL Rx#:[id number]
Output:
Urinary Drain Output (Total) 495 / 495 75 / 75
Right Nephrostomy 495 / 495 75 / 75
Gastrointestinal tube output ( 250 / 250
Total)
[place] Sump 250 / 250
Urine, Ellison 775 / 775 1140 / 1140
Laboratory Results
08/15/24 06:14
08/15/24 06:14
Review of Systems
-
Constitutional: Fatigue
Respiratory: No Symptoms
Cardiac: No Symptoms
Abdomen/GI: Abdominal Pain
: Other (ellison)
Musculoskeletal: Muscle Stiffness
Skin: No Symptoms
Neurological: No Symptoms
Physical Exam
-
General - no acute distress
Abdomen - mild distension and some tenderness- right perc in place
Genitalia - ellison in place- urine clear
Skin - warm & dry with no rash
Neuro - AOx3, no motor deficits
Extremities - no clubbing, no cyanosis, no edema
Dressing - clean, dry, intact
[2024-08-15] MEDS: NEUTRA-PHOS POWDER PACKET 250 MG PO ×4 (09:51→22:13)
[2024-08-15] MEDS: KCL ELIXIR 40 MEQ PO (09:51)
[2024-08-15] MEDS: PROTONIX IV 40 MG IV (09:58)
[2024-08-15] MEDS: NSS (PRESERVATIVE FREE) 10 ML IV (09:59)
--- NOTE | 2024-08-15 13:07 | W.PN.HOSP.TC ---
Today's Communication/Plan
-
replete kcl
IV antibiotics
Trend cbc
pt/ot
Assessment / Plan
Assessment / Plan
Impression:
Status post right PCNL for staghorn colliculi on 08/13inpatient for recurrent UTI and resistant organism
Postoperative abdominal distention likely combination of ileus and intra-abdominal fluid infused during the procedure.
Postoperative bleeding via PCN and Espinoza catheter
Acute blood loss anemia
Acute hypoxic respiratory insufficiency likely due to bilateral atelectasis
Normal anion gap metabolic acidosis suspect secondary to GI losses with postoperative emesis.
Other conditions:
Essential hypertension
Dyslipidemia
History of acute cholecystitis status postcholecystectomy with intraoperative ERCP
Plan:
Postoperative abdominal distention with episode of emesis improved with NG tube decompression
Suspect this is multifactorial and secondary to ileus and intra-abdominal fluid being infused over the procedure
No fluid collection to drain by IR.
Improving with decreased abdominal distention while NG tube is in place and clamped.
s/p NGT placement and removal. Started on soft diet.
Continue IV PPI
Acute postoperative blood loss anemia with hemoglobin down from 12�to 10.2, expected close with no evidence of ongoing bleeding
Suspect dilutional effect as well.
CTA postoperatively negative for acute bleeding
Monitor hemoglobin.
Status post right PCNL.
Espinoza catheter and right PCN is in place as per urology.
Metabolic acidosis with normal anion gap suspect secondary to emesis.
Hemodynamically stable
Okay to wean off IV fluids with bicarb once diet has been advanced to liquids
Noted with increased white count likely secondary to stress.
Afebrile, nontoxic-appearing
Has bibasilar atelectasis visible on CT scan of the abdomen with minimal bilateral pleural effusions. Doubt aspiration.
Empiric antibiotics meropenem (prior urine culture with ESBL)
Blood cultures pending
Follow CBC-WBC downtrending.
Anticipated Discharge: > 48 hours
Subjective/Interval History
-
Date of Service: August 15, 2024
states of sore throat
Objective Data
-
Labs:
Laboratory Results
08/15/24
06:14
WBC 16.0 H
Hgb 9.4 L
Hct 29.2 L
Plt Count 286
Sodium 143
Potassium 3.3 L
Chloride 104
Carbon Dioxide 34 H
BUN 12
Creatinine 0.5 L
Glucose 115 H
Calcium 8.2 L
Vital Signs:
Vital Signs
Temp Pulse Resp BP Pulse Ox
98.0 F 96 18 119/65 93
08/15/24 08:18 08/15/24 12:01 08/15/24 12:01 08/15/24 12:01 08/15/24 12:01
I&O
08/14/24 08/15/24 08/16/24
06:59 06:59 06:59
Intake Total 1340 / 1420 1560 / 1560
Output Total 1520 / 1520 1215 / 1215
Balance -180 / -100 345 / 345
Physical Exam
-
General: Well Developed and No Apparent Distress
HEENT: Normocephalic, Atraumatic and Moist Mucous Membranes
Respiratory: Clear to Auscultation
Cardiac: Regular Rhythm and S1/S2; Negative Murmur, Rub or Gallop
GI: Soft, Nontender, Nondistended and Normal Bowel Sounds; Negative Organomegaly
Rectal: Deferred by Provider
Genito-urinary: Other (Right PCN. Espinoza catheter)
Musculoskeletal: No Clubbing, No Cyanosis and No Edema
Skin: Negative Rash
Neuro: Awake, Alert, Oriented, AO x 3 and Nonfocal/Grossly Intact
Psych: Calm
Data Reviewed
-
Total Time Spent with Patient (in minutes): 55
[2024-08-15] MEDS: ANESTHETIC LOZENGE 1 LOZENGE PO (15:03)
[2024-08-16] MEDS: STERILE WATER FOR INJECTION 10 ML IV ×4 (02:41→20:08)
[2024-08-16] MEDS: MERREM 500 MG IV ×4 (02:41→20:08)
[2024-08-16] MEDS: NSS (PRESERVATIVE FREE) 10 ML IV (07:53)
[2024-08-16] MEDS: PROTONIX IV 40 MG IV (07:53)
[2024-08-16] MEDS: NEUTRA-PHOS POWDER PACKET 250 MG PO ×2 (07:54→13:18)
[2024-08-16 08:06] LABS: Blood Urea Nitrogen 11 mg/dl (7-17); Calcium 8.3 mg/dl (8.4-10.2); Carbon Dioxide 34 mmol/L (22-30); Chloride 106 mmol/L (98-107); Estimated Creatinine Clearance 59 ml/min; Glucose 104 mg/dl (70-99); Magnesium 1.8 mg/dl (1.6-2.3); Phosphorus 2.9 mg/dl (2.5-4.5); Potassium 3.8 mmol/L (3.5-5.1); Sodium 141 mmol/L (135-145); eGFR > 60.00
[2024-08-16 08:08] LABS: Hematocrit 30.2 % (37.0-47.0); Hemoglobin 9.6 g/dL (12.0-16.0); Mean Corp Hgb Conc. 31.8 g/dL (33.0-37.0); Mean Corpuscular Hgb 29.1 pg (27.0-31.0); Mean Corpuscular Volume 91.5 fL (81.0-99.0); Platelet Count 279 10^3/uL (130-400); Red Cell Dist. Width 13.6 % (11.5-14.5); White Blood Cell Count 13.1 10^3/uL (4.8-10.8)
[2024-08-16 08:35] VITALS: BP 130/63
--- NOTE | 2024-08-16 10:30 | W.PN.URO.CBU ---
Today's Communication / Plan
-
increase activity
right perc tube removed
Assessment / Plan
-
79F with R staghorn renal stone
s/p R PCNL 08/13
Complicated by abdominal distension and clotted nephrostomy post op
CT showed large volume peritoneal and retroperitoneal fluid due to leaking of irrigant during surgery
No active bleed from kidney
Fluid collection/abdominal distension
- Improvement in abdominal distension this AM
- Significant volume of fluid leaking from around nephrostomy has resolved
Post op bleeding
- HGB stable
- Continue to trend daily
- Right perc removed- will observe
- Ellison removal prior to discharge
Ileus
- Post op bilious emesis s/p NGT placement
- NG out- no vomiting but some loose stools- start probiotic and observe
- continue soft diet
Leukocytosis
- Significant elevation, suspect reactive but infection possible. No fevers- Wbc downtrending
- Urine culture pending
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
Hypokalenia
- resolved- recheck in am
perc removed today
IS/UOOB
if flank dry tomorrow- plan to remove ellison and possible discharge
Diagnosis
-
Date of Service: August 16, 2024
-
Patient Diagnosis:
R staghorn renal stone
Retroperitoneal and peritoneal fluid collection from saline irrigant
Post op bleeding
Bilious emesis
Leukocytosis
Post Op s/p PCNL 08/13/24
Subjective
-
pt stable
throat is much better
tolerating soft diet
no vomiting- but did have some diarhhea
afebrile/wbc declining
urine clear
tolerated perc clamp for 24hrs
Objective
-
Vital Signs
Temp Pulse Resp BP Pulse Ox
97.9 F 80 14 130/63 94
08/16/24 08:35 08/16/24 08:35 08/16/24 08:35 08/16/24 08:35 08/16/24 08:35
Intake and Output
08/15/24 08/16/24 08/17/24
06:59 06:59 06:59
Intake Total 1560 / 1560 240 / 240
Output Total 1215 / 1215 1500 / 1500
Balance 345 / 345 -1260 / -1260
Intake:
Oral fluids 480 / 480 240 / 240
IV fluids (Total) 1080 / 1080
D5w 1,000 ml @ 100 mls/hr IV . 600 / 600
[id number] CAROL with Sodium
Bicarbonate 150 Meq Rx#:
[id number]
D5w 1,000 ml @ 80 mls/hr IV . 480 / 480
[id number] CAROL with Sodium
Bicarbonate 150 Meq Rx#:
[id number]
Output:
Urinary Drain Output (Total) 75 / 75
Right Nephrostomy 75 / 75
Urine, Ellison 1140 / 1140 1500 / 1500
Laboratory Results
08/16/24 07:28
08/16/24 07:28
Review of Systems
-
Constitutional: Fatigue
Respiratory: No Symptoms
Cardiac: No Symptoms
Abdomen/GI: Diarrhea
Physical Exam
-
General - no acute distress
Abdomen - soft, non-tender,
[2024-08-16] MEDS: FLORASTOR 250 MG PO ×2 (10:35→20:05)
--- NOTE | 2024-08-16 11:26 | W.PN.HOSP.TC ---
Today's Communication/Plan
-
IV abx
monitor UOP
Probiotics
await culture data
PT/OT
Assessment / Plan
Assessment / Plan
Impression:
Status post right PCNL for staghorn colliculi on 08/13inpatient for recurrent UTI and resistant organism
Postoperative abdominal distention likely combination of ileus and intra-abdominal fluid infused during the procedure.
Postoperative bleeding via PCN and Espinoza catheter
Acute blood loss anemia
Acute hypoxic respiratory insufficiency likely due to bilateral atelectasis
Normal anion gap metabolic acidosis suspect secondary to GI losses with postoperative emesis.
Other conditions:
Essential hypertension
Dyslipidemia
History of acute cholecystitis status postcholecystectomy with intraoperative ERCP
Plan:
Postoperative abdominal distention with episode of emesis improved with NG tube decompression
Suspect this is multifactorial and secondary to ileus and intra-abdominal fluid being infused over the procedure
No fluid collection to drain by IR.
Improving with decreased abdominal distention while NG tube is in place and clamped.
s/p NGT placement and removal. Started on soft diet.
Continue IV PPI
Acute postoperative blood loss anemia with hemoglobin down from 12�to 10.2, expected close with no evidence of ongoing bleeding
Suspect dilutional effect as well.
CTA postoperatively negative for acute bleeding
Monitor hemoglobin.
Status post right PCNL.
Espinoza catheter and right PCN is in place as per urology. Right PCN removed. TOV prior to dc.
Metabolic acidosis with normal anion gap suspect secondary to emesis.
Hemodynamically stable
Okay to wean off IV fluids with bicarb once diet has been advanced to liquids
Noted with increased white count likely secondary to stress.
Afebrile, nontoxic-appearing
Has bibasilar atelectasis visible on CT scan of the abdomen with minimal bilateral pleural effusions. Doubt aspiration.
Empiric antibiotics meropenem (prior urine culture with ESBL)
Blood cultures negative so far
Follow CBC-WBC downtrending.
Anticipated Discharge: 24 - 48 hours
Subjective/Interval History
-
Date of Service: August 16, 2024
states improvement in sore throat
states had loose bm earlier today
Objective Data
-
Labs:
Laboratory Results
08/16/24
07:28
WBC 13.1 H
Hgb 9.6 L
Hct 30.2 L
Plt Count 279
Sodium 141
Potassium 3.8
Chloride 106
Carbon Dioxide 34 H
BUN 11
Creatinine 0.5 L
Glucose 104 H
Calcium 8.3 L
Vital Signs:
Vital Signs
Temp Pulse Resp BP Pulse Ox
97.9 F 80 14 130/63 94
08/16/24 08:35 08/16/24 08:35 08/16/24 08:35 08/16/24 08:35 08/16/24 08:35
I&O
08/15/24 08/16/24 08/17/24
06:59 06:59 06:59
Intake Total 1560 / 1560 240 / 240
Output Total 1215 / 1215 1500 / 1500
Balance 345 / 345 -1260 / -1260
Physical Exam
-
General: Well Developed and No Apparent Distress
HEENT: Normocephalic, Atraumatic and Moist Mucous Membranes
Respiratory: Clear to Auscultation
Cardiac: Regular Rhythm and S1/S2; Negative Murmur, Rub or Gallop
GI: Soft, Nontender, Nondistended and Normal Bowel Sounds; Negative Organomegaly
Rectal: Deferred by Provider
Genito-urinary: Other ( Espinoza catheter)
Musculoskeletal: No Clubbing, No Cyanosis and No Edema
Skin: Negative Rash
Neuro: Awake, Alert, Oriented, AO x 3 and Nonfocal/Grossly Intact
Psych: Calm
[2024-08-16 11:30] VITALS: BP 160/87
[2024-08-16 13:07] LABS: Stone Analysis Mass 1782 mg
[2024-08-16 16:05] VITALS: BP 132/60
[2024-08-16 19:33] VITALS: BP 146/66
[2024-08-16 23:10] VITALS: BP 139/73
[2024-08-17] MEDS: MERREM 500 MG IV (02:48)
[2024-08-17] MEDS: STERILE WATER FOR INJECTION 10 ML IV (02:48)
[2024-08-17 02:53] VITALS: BP 127/67
--- NOTE | 2024-08-17 06:40 | W.PN.URO.CBU ---
Today's Communication / Plan
-
continue ellison
monitor po intake
UOOB
Vn consult for home ellison and wound monitoring
Assessment / Plan
-
79F with R staghorn renal stone
s/p R PCNL 08/13
Complicated by abdominal distension and clotted nephrostomy post op
CT showed large volume peritoneal and retroperitoneal fluid due to leaking of irrigant during surgery
No active bleed from kidney- hgb has been stable
Fluid collection/abdominal distension
- Improvement in abdominal distension
Post op bleeding
- HGB stable
Ileus
- Post op bilious emesis s/p NGT placement
- NG out- no vomiting but some loose stools- improved- continue probiotic
- continue soft diet
Leukocytosis
- Significant elevation, suspect reactive but infection possible. No fevers- Wbc downtrending
- Urine culture negative
- stop meropenen
Hypokalenia
- resolved- recheck today
perc removed
still with steady drainage of fluid- ? urine vs residual retroperitoneal collection- will leave ellison for now
will discuss with dr esquivel today- prob discharge with ellison in the next 24hrs depending on lab results and ability to take in diet with sore throat complaint
Diagnosis
-
Date of Service: August 17, 2024
-
Patient Diagnosis:
R staghorn renal stone
Retroperitoneal and peritoneal fluid collection from saline irrigant
Post op bleeding
Bilious emesis
Leukocytosis
Post Op s/p PCNL 08/13/24
Subjective
-
pt stable after nephrostomy removal- but still slow drip of urine from perc site
ellison urine clear
no fevers/ucx negative
still c/o of sore/dry throat and nose
Objective
-
Vital Signs
Temp Pulse Resp BP Pulse Ox
98.3 F 73 18 127/67 95
08/17/24 02:53 08/17/24 02:53 08/17/24 02:53 08/17/24 02:53 08/17/24 02:53
Intake and Output
08/15/24 08/16/24 08/17/24
06:59 06:59 06:59
Intake Total 1560 / 1560 240 / 240 1160 / 1160
Output Total 1215 / 1215 1500 / 1500 3700 / 3700
Balance 345 / 345 -1260 / -1260 -2540 / -2540
Intake:
Oral fluids 480 / 480 240 / 240 1160 / 1160
IV fluids (Total) 1080 / 1080
D5w 1,000 ml @ 100 mls/hr IV . 600 / 600
[id number] CAROL with Sodium
Bicarbonate 150 Meq Rx#:
[id number]
D5w 1,000 ml @ 80 mls/hr IV . 480 / 480
[id number] CAROL with Sodium
Bicarbonate 150 Meq Rx#:
[id number]
Output:
Urinary Drain Output (Total) 75 / 75
Right Nephrostomy 75 / 75
Urine, Ellison 1140 / 1140 1500 / 1500 3700 / 3700
Review of Systems
-
Constitutional: Fatigue
Respiratory: No Symptoms
Cardiac: No Symptoms
Abdomen/GI: No Symptoms
Physical Exam
-
General - well developed, well nourished, no acute distress
Abdomen - soft, non-tender
Genitalia - ellison in place
Skin - warm & dry with no rash
Neuro - AOx3, no motor deficits
Extremities - no clubbing, no cyanosis, no edema
Incision - right flank perc site- slow persistent drip of fluid
[2024-08-17 07:30] VITALS: BP 127/71
[2024-08-17 07:34] LABS: Hematocrit 31.2 % (37.0-47.0); Hemoglobin 9.8 g/dL (12.0-16.0); Mean Corp Hgb Conc. 31.4 g/dL (33.0-37.0); Mean Corpuscular Hgb 28.6 pg (27.0-31.0); Mean Platelet Volume 9.8 fL (7.4-10.4); Platelet Count 301 10^3/uL (130-400); Red Blood Cell Count 3.43 10^6/uL (4.20-5.40); Red Cell Dist. Width 13.4 % (11.5-14.5); White Blood Cell Count 11.3 10^3/uL (4.8-10.8)
[2024-08-17 07:56] LABS: Blood Urea Nitrogen 9 mg/dl (7-17); Calcium 8.5 mg/dl (8.4-10.2); Carbon Dioxide 33 mmol/L (22-30); Chloride 104 mmol/L (98-107); Estimated Creatinine Clearance 59 ml/min; Glucose 116 mg/dl (70-99); Magnesium 1.9 mg/dl (1.6-2.3); Phosphorus 3.6 mg/dl (2.5-4.5); Potassium 3.7 mmol/L (3.5-5.1); Sodium 140 mmol/L (135-145); eGFR > 60.00
[2024-08-17] MEDS: NSS (PRESERVATIVE FREE) 10 ML IV (07:56)
[2024-08-17] MEDS: PROTONIX IV 40 MG IV (07:56)
[2024-08-17] MEDS: FLORASTOR 250 MG PO (08:04)
--- NOTE | 2024-08-17 10:26 | CM ---
Chart reviewed and home health care case manager met with patient to discuss discharge planning with patient and patient's physician has ordered visiting nurses, for Espinoza care along with wound care. manager php spoke with patient and patient's spouse and they have
selected [facility], referral sent to [facility].
Per patient and spouse they have moved to [place], address [address] [place] [address]
Plan; Home with spouse and [facility].
--- NOTE | 2024-08-17 10:55 | VNURNOTE ---
Home Health Liaison met with patient to discuss [facility] nurse/therapy, visits, schedule and homebound status. Patient is reluctant. She just moved and is having a new furnace installed. [facility] liaison explained that visits at home will be 2-3 x per
week to assess and teach ellison and medical management. At end of visit, patient said she would be agreeable but wants to speak with her spouse more about services. [facility] brochure provided with contact information. Patient is aware that [facility] will
contact them for start of care in 1-2 days after discharge from .
[facility] referral completed in [facility].
[2024-08-17 12:28] VITALS: BP 139/60
[2024-08-17] MEDS: TYLENOL 650 MG PO (12:38)
--- NOTE | 2024-08-17 12:43 | PTCARENOTE ---
Espinoza removed per order. Patient due to void by 1800. Eager to ambulate within room. Gait steady w/ RW and standby assistance. Q2hr turning placed on hold, patient capable of turning self in bed without reminders.
[2024-08-17 16:25] VITALS: BP 154/50
[2024-08-17 16:26] VITALS: BP 154/50; PULSE 89; O2SAT 97
--- NOTE | 2024-08-17 18:12 | W.PN.HOSP.TC ---
Today's Communication/Plan
-
Stable for discharge home and outpatient urology follow-up.
Assessment / Plan
Assessment / Plan
Impression:
Status post right PCNL for staghorn colliculi on 08/13inpatient for recurrent UTI and resistant organism
Postoperative abdominal distention likely combination of ileus and intra-abdominal fluid infused during the procedure.
Postoperative bleeding via PCN and Espinoza catheter
Acute blood loss anemia
Acute hypoxic respiratory insufficiency likely due to bilateral atelectasis
Normal anion gap metabolic acidosis suspect secondary to GI losses with postoperative emesis.
Other conditions:
Essential hypertension
Dyslipidemia
History of acute cholecystitis status postcholecystectomy with intraoperative ERCP
Plan:
Diet has been advanced
Espinoza catheter removed, patient able to urinate.
Stable hemoglobin.
Afebrile while off antibiotics.
Resolved metabolic acidosis.
Anticipated Discharge: Today
Subjective/Interval History
-
Date of Service: August 17, 2024
Objective Data
-
Labs:
Laboratory Results
08/17/24
07:04
WBC 11.3 H
Hgb 9.8 L
Hct 31.2 L
Plt Count 301
Sodium 140
Potassium 3.7
Chloride 104
Carbon Dioxide 33 H
BUN 9
Creatinine 0.5 L
Glucose 116 H
Calcium 8.5
Vital Signs:
Vital Signs
Temp Pulse Resp BP Pulse Ox
98 F 89 18 154/50 97
08/17/24 16:25 08/17/24 16:25 08/17/24 16:25 08/17/24 16:25 08/17/24 16:25
I&O
08/16/24 08/17/24 08/18/24
06:59 06:59 06:59
Intake Total 240 / 240 1160 / 1160
Output Total 1500 / 1500 3700 / 3700 225 / 225
Balance -1260 / -1260 -2540 / -2540 -225 / -225
Physical Exam
-
General: Well Developed and No Apparent Distress
HEENT: Normocephalic, Atraumatic and Moist Mucous Membranes
Respiratory: Clear to Auscultation
Cardiac: Regular Rhythm and S1/S2; Negative Murmur, Rub or Gallop
GI: Soft, Nontender, Nondistended and Normal Bowel Sounds; Negative Organomegaly
Rectal: Deferred by Provider
Genito-urinary: Other ( Espinoza catheter)
Musculoskeletal: No Clubbing, No Cyanosis and No Edema
Skin: Negative Rash
Neuro: Awake, Alert, Oriented, AO x 3 and Nonfocal/Grossly Intact
Psych: Calm
== END 2024-08-17 19:04 | disposition home health service (06) | DRG 659 ==
LOC: 4 WEST ACU 14:01
PROVIDERS: Hospitalist; Specialist; ADMITTING PHYSICIAN Urology; CONSULT PHYSICIAN Internal Medicine; FAMILY PHYSICIAN Physician Assistant Medical; OTHER PHYSICIAN Internal Medicine Critical Care Medicine
PROC: 0T764DZ Dilation of Right Ureter with Intraluminal Device, Percutaneous Endoscopic Approach (ICD-10-PCS; 2024-08-12)
PROC: 0TC34ZZ Extirpation of Matter from Right Kidney Pelvis, Percutaneous Endoscopic Approach (ICD-10-PCS; 2024-08-12)
PROC: 0TC04ZZ Extirpation of Matter from Right Kidney, Percutaneous Endoscopic Approach (ICD-10-PCS; 2024-08-12)
PROC: 0T9030Z Drainage of Right Kidney with Drainage Device, Percutaneous Approach (ICD-10-PCS; 2024-08-12)
DX: N20.0 Calculus of kidney (principal); J96.01 Acute respiratory failure with hypoxia; E87.20 Acidosis, unspecified; R18.8 Other ascites; K91.89 Other postprocedural complications and disorders of digestive system; K56.7 Ileus, unspecified; D62 Acute posthemorrhagic anemia; N99.820 Postprocedural hemorrhage of a genitourinary system organ or structure following a genitourinary system procedure; J98.11 Atelectasis; E87.6 Hypokalemia; Z68.1 Body mass index [BMI] 19.9 or less, adult; R63.6 Underweight; N30.21 Other chronic cystitis with hematuria; I10 Essential (primary) hypertension; E78.00 Pure hypercholesterolemia, unspecified; F90.9 Attention-deficit hyperactivity disorder, unspecified type; Z79.899 Other long term (current) drug therapy; Z88.1 Allergy status to other antibiotic agents; Y83.8 Other surgical procedures as the cause of abnormal reaction of the patient, or of later complication, without mention of misadventure at the time of the procedure
CPT/HCPCS: 50695; 74174; 74420; 76000; 76705; 80048; 81003; 81015; 82365; 83735; 84100; 85018; 85025; 85027; 86850; 86870; 86900; 86901; 86920; 86922; 87040; 87086; 97116; 97162; 97166; 97530; 99152; 99153; C1726; C1729; C1758; C1769; C2617; J2185; Q9967

== ENCOUNTER → 2024-09-04 14:13 | Outpatient (REF) | payer MEDICARE, SELFPAY ==
[2024-09-04 15:48] LABS: % Basophils 0.6 % (0-2); % Eosinophils 1.1 % (0-6); % Immature Granulocytes 1.9 % (0-0.5); % Lymphocytes 9.5 % (20.5-51.1); % Monocytes 9.4 % (1.7-9.3); % Neutrophils 77.5 % (42.2-75.2); Absolute Basophils 0.1 10^3/uL (0-0.2); Absolute Eosinophils 0.1 10^3/uL (0-0.7); Absolute Immature Granulocytes 0.2 10^3/uL (0-0.05); Absolute Neutrophils 8.3 10^3/uL (1.4-6.5); Hematocrit 34.1 % (37.0-47.0); Hemoglobin 10.9 g/dL (12.0-16.0); Mean Corpuscular Hgb 28.2 pg (27.0-31.0); Mean Corpuscular Volume 88.3 fL (81.0-99.0); Mean Platelet Volume 10.2 fL (7.4-10.4); Nucleated Red Blood Cells % 0 %; Platelet Count 413 10^3/uL (130-400); Red Blood Cell Count 3.86 10^6/uL (4.20-5.40); Red Cell Dist. Width 13.9 % (11.5-14.5); White Blood Cell Count 10.7 10^3/uL (4.8-10.8)
[2024-09-04 16:36] LABS: TSH 3.92 uIU/ml (0.47-4.68)
== END ==
LOC: REG 14:13
PROVIDERS: ATTENDING PHYSICIAN Physician Assistant Medical
DX: R79.89 Other specified abnormal findings of blood chemistry (principal); E03.8 Other specified hypothyroidism; R94.6 Abnormal results of thyroid function studies
CPT/HCPCS: 36415; 84443; 85025

== ENCOUNTER 2024-09-08 06:09 | Day surgery (SDC) | payer MEDICARE, SELFPAY ==
--- NOTE | 2024-08-28 13:48 | PTCARENOTE ---
Abnormal EKG 08/26/24, reviewed by Dr Hoskins, cardiac clearance required. Carisa at Dr Chino's office notified by TT.
[2024-09-08] VITALS (7 sets, daily range): BP systolic 121–168; BP diastolic 63–78; BMI 19.6
[2024-09-08] MEDS: NORMOSOL-R/PLASMALYTE-A 1000 IV (07:16)
== END 2024-09-08 11:41 | disposition home or self-care (01) ==
LOC: SDS 06:09
PROVIDERS: ATTENDING PHYSICIAN Urology
DX: N20.0 Calculus of kidney (principal)
CPT/HCPCS: 52356; 74018; 76000; A4300; C1758; C1769; C1894; C2617; J2185

== ENCOUNTER 2024-09-24 06:46 | Day surgery (SDC) | payer MEDICARE, SELFPAY ==
[2024-09-24] VITALS (7 sets, daily range): BP systolic 140–148; BP diastolic 58–87; BMI 19.8
[2024-09-24] MEDS: NORMOSOL-R/PLASMALYTE-A 1000 IV (10:50)
== END 2024-09-24 15:30 | disposition home or self-care (01) ==
LOC: SDS 06:46
PROVIDERS: ATTENDING PHYSICIAN Urology
DX: N20.0 Calculus of kidney (principal)
CPT/HCPCS: 52356; 74018; 76000; A4300; C1758; C1769; C2617; J2185

== ENCOUNTER → 2024-10-09 16:19 | Outpatient (REF) | payer MEDICARE, SELFPAY | LOC: RAD 16:19 | PROVIDERS: ATTENDING PHYSICIAN Surgery Vascular Surgery; FAMILY PHYSICIAN Physician Assistant Medical | DX: I72.8 Aneurysm of other specified arteries (principal) | CPT/HCPCS: 70498; Q9967 ==

== ENCOUNTER → 2025-06-04 11:13 | Outpatient (REF) | payer MEDICARE, SELFPAY | LOC: RCS 11:13 | PROVIDERS: ATTENDING PHYSICIAN Internal Medicine Interventional Cardiology; FAMILY PHYSICIAN Physician Assistant Medical | DX: I08.0 Rheumatic disorders of both mitral and aortic valves (principal); I34.81 Nonrheumatic mitral (valve) annulus calcification; I35.8 Other nonrheumatic aortic valve disorders | CPT/HCPCS: 93306 ==